=== PATIENT | male | born 1980 | race African-American/Black ===

== ENCOUNTER 2016-08-28 16:07 | Emergency (ER) | payer OTHER, MEDICAID ==
[2016-08-28 16:18] VITALS: RESP 16; TEMP 98.6; O2SAT 98
--- NOTE | 2016-08-28 16:21 | EDPHY ---
H & P Stated Complaint: blurry vision, insomnia, chest pounding, photosensitive, diff concentrating Time Seen by Provider: 08/28/16 16:20 HPI/ROS: CHIEF COMPLAINT: Multiple complaints. HISTORY OF PRESENT ILLNESS: This patient is a 36 year old male with a history of epilepsy who presents to the Emergency Department complaining that he has felt "out of it" over the past 3-4 days with multiple complaints including insomnia, heart palpitations with lightheadedness, nausea with loss of appetite , photophobia, and intermittent chills. He does complain of a mild headache that he attributes to muscle tension. No vomiting or diarrhea. His last seizure was over one week ago; he tells me that he regularly experiences seizures approximately 1x per month. He treats his epilepsy with cannabinoids and has not changed his dosage. He smokes marijuana but has not over the past 4-5 days. No alcohol or additional drug use. No personal or family history of depression, anxiety, schizophrenia, or bipolar disorder. REVIEW OF SYSTEMS: Aside from elements discussed in the HPI, a comprehensive 10-point review of systems was reviewed and is negative. PAST MEDICAL HISTORY: Epilepsy. Prior medical records reviewed by myself, including most recent visit on 2015. SOCIAL HISTORY: No alcohol or illicit drug use. Regular marijuana use (medical and recreational). Smokes tobacco regularly. PHYSICAL EXAM: VITAL SIGNS: Reviewed by me GENERAL: Well-developed, well-nourished, resting comfortably in no respiratory distress. HEENT: Atraumatic. Eyes: No icterus, no injection. Mouth: moist mucous membranes. No erythema or lesions. Neck: supple with no adenopathy. LUNGS: Clear to auscultation bilaterally, no wheezes, rhonchi or rales. CARDIAC: Regular rate and rhythm, no rubs, murmurs or gallops. ABDOMEN: Soft, nontender, nondistended, bowel sounds normal. BACK: No CVA tenderness. EXTREMITIES: No trauma. No edema. Range of motion is normal throughout. NEURO: Alert and oriented, grossly nonfocal. SKIN: Warm, diaphoretic, no rash. PSYCHIATRIC: Normal mentation, no agitation, pressured speech. Portions of this note were transcribed by a medical office clerk. I personally performed a history, physical exam, medical decision making, and confirmed accuracy of information the transcribed note. - Personal History Current Tetanus/Diphtheria Vaccine: Unsure Current Tetanus Diphtheria and Acellular Pertussis (TDAP): Unsure Tetanus Vaccine Date: < 10 years - Medical/Surgical History Hx Asthma: No Hx Chronic Respiratory Disease: No Hx Diabetes: No Hx Cardiac Disease: No Hx Renal Disease: No Hx Cirrhosis: No Hx Alcoholism: No Hx HIV/AIDS: No Hx Splenectomy or Spleen Trauma: No Other PMH: pmh: Epilepsy. psh: denies - Social History Smoking Status: Former smoker Constitutional: Initial Vital Signs Temperature (C) 37.0 C 08/28/16 16:15 Heart Rate 89 08/28/16 16:15 Respiratory Rate 16 08/28/16 16:15 Blood Pressure 141/86 H 08/28/16 16:15 O2 Sat (%) 98 08/28/16 16:15 O2 Delivery Mode Room Air Allergies/Adverse Reactions: Penicillins Allergy (Verified 05/21/16 18:41) Home Medications: Medication Instructions Recorded Cbd Oil 05/21/16 Atenolol [Tenormin 25 mg (*)] 25 mg PO DAILY #30 tab 08/28/16 Medical Decision Making - Diagnostics EKG Interpretation: The 12 lead EKG was interpreted by myself: Sinus rhythm, rate 74; ST elevation, probable normal early repol pattern. See hard copy and/or "tracemaster" electronic copy for interpretation. Imaging: Study: X-ray of the chest Indication: Palpitations Results: X-ray of the chest was obtained. The results of the study are: no acute pulmonary disease. The study was read by the radiologist, Dr. Justo Ware. I viewed the images myself on the PACS system. ED Course/Re-evaluation: IV established. 1L IV NS administered. Plan for labs, UA, and EKG. Labs reviewed: TSH is below normal range at 0.451; WBC is elevated at 11.78. Will proceed with Free T3 and T4 for further evaluation of possible hyperthyroidism. 1755: On reevaluation, the patient is feeling moderately improved. He is resting comfortably. I reviewed lab, UA, and EKG results with him. 182: Consultation with Dr. De La Garza, it specialist taking call for endocrinology, who will see the patient in the office. He recommends that the patient be sent home with atenolol. I discussed this plan with the patient who is agreeable to this. He will be discharged home in good condition. Differential Diagnosis: Differential diagnoses for the patient's symptom complex was considered including but not limited to anxiety, panic attack, withdrawal syndrome, drug or alcohol abuse, dehydration, electrolyte abnormalities, hyperthyroidism. - Data Points Laboratory Results: Laboratory Results 08/28/16 16:50 08/28/16 16:50 08/28/16 08/28/16 18:03 16:50 WBC 11.78 H 10^3/uL (3.80-9.50) RBC 5.83 10^6/uL (4.40-6.38) Hgb 16.0 g/dL (13.7-17.5) Hct 48.1 % (40.0-51.0) MCV 82.5 fL (81.5-99.8) MCH 27.4 L pg (27.9-34.1) MCHC 33.3 g/dL (32.4-36.7) RDW 14.0 % (11.5-15.2) Plt Count 291 10^3/uL (150-400) MPV 10.0 fL (8.7-11.7) Neut % (Auto) 73.3 % (39.3-74.2) Lymph % (Auto) 18.8 % (15.0-45.0) [place] % (Auto) 6.6 % (4.5-13.0) Eos % (Auto) 0.7 % (0.6-7.6) Baso % (Auto) 0.3 % (0.3-1.7) Nucleat RBC Rel Count 0.0 % (0.0-0.2) Absolute Neuts (auto) 8.63 H 10^3/uL (1.70-6.50) Absolute Lymphs (auto) 2.22 10^3/uL (1.00-3.00) Absolute Monos (auto) 0.78 10^3/uL (0.30-0.80) Absolute Eos (auto) 0.08 10^3/uL (0.03-0.40) Absolute Basos (auto) 0.04 10^3/uL (0.02-0.10) Absolute Nucleated RBC 0.00 10^3/uL (0-0.01) Immature Gran % 0.3 % (0.0-1.1) Immature Gran # 0.03 10^3/uL (0.00-0.10) D-Dimer < 0.27 ug/mLFEU (0.00-0.50) Sodium 145 H mEq/L (134-144) Potassium 4.1 mEq/L (3.5-5.2) Chloride 107 mEq/L (97-110) Carbon Dioxide 26 mEq/l (22-31) Anion Gap 12 mEq/L (8-16) BUN 10 mg/dL (7-23) Creatinine 0.9 mg/dL (0.7-1.3) Estimated GFR > 60 Glucose 80 mg/dL (70-100) Calcium 9.7 mg/dL (8.5-10.4) Total Bilirubin 0.9 mg/dL (0.1-1.4) Conjugated Bilirubin 0.2 mg/dL (0.0-0.5) Unconjugated Bilirubin 0.7 mg/dL (0.0-1.1) AST 22 IU/L (17-59) ALT 30 IU/L (21-72) Alkaline Phosphatase 79 IU/L (38-126) Creatine Kinase 164 IU/L (0-224) Troponin I < 0.012 ng/mL (0-0.034) Total Protein 7.9 g/dL (6.3-8.2) Albumin 4.5 g/dL (3.5-5.0) Lipase 163.0 IU/L (23-300) TSH 0.451 L uIU/mL (0.465-4.680) Free T4 1.45 ng/dL (0.59-2.19) Free T3 4.27 pg/mL (2.77-5.27) Urine Color YELLOW Urine Appearance CLEAR Urine pH 7.0 (5.0-7.5) Ur Specific [place] 1.006 (1.002-1.030) Urine Protein NEGATIVE (NEGATIVE) Urine Ketones NEGATIVE (NEGATIVE) Urine Blood NEGATIVE (NEGATIVE) Urine Nitrate NEGATIVE (NEGATIVE) Urine Bilirubin NEGATIVE (NEGATIVE) Urine Urobilinogen NEGATIVE EU (0.2-1.0) Ur Leukocyte Esterase NEGATIVE (NEGATIVE) Urine RBC 1-3 /hpf (0-3) Urine WBC NONE SEEN /hpf (0-3) Ur Epithelial Cells NONE SEEN /lpf (NONE-1+) Urine Sperm PRESENT /hpf (NONE SEEN) Urine Glucose NEGATIVE (NEGATIVE) Urine Opiates Screen NEGATIVE (NEGATIVE) Urine Barbiturates NEGATIVE (NEGATIVE) Ur Phencyclidine Scrn NEGATIVE (NEGATIVE) Ur Amphetamine Screen NEGATIVE (NEGATIVE) U Benzodiazepines Scrn NEGATIVE (NEGATIVE) Urine Cocaine Screen NEGATIVE (NEGATIVE) U Marijuana (THC) Screen NON-NEGATIVE H (NEGATIVE) Medications Given: Discontinued Medications Sodium Chloride (Ns) 1,000 mls @ 0 mls/hr IV ONCE ONE PRN Reason: Wide Open Stop: 08/28/16 16:34 Last Admin: 08/28/16 16:59 Dose: 1,000 mls Departure - Departure Disposition: Home, Routine, Self-Care Clinical Impression: Low thyroid stimulating hormone (TSH) level, Heart palpitations, Anxiety Condition: Good Instructions: Hyperthyroidism (ED), Palpitations (ED), Anxiety (ED) Additional Instructions: 1. Call Dr. De La Garza tomorrow to schedule a follow-up appointment this week. Any Internal Medicine Physician at [facility] will be happy to see you for further evaluation following today's visit. When scheduling the appointment , make sure to tell them that this is in follow-up to a visit to the Emergency Department. 2. Two lab tests are still pending. Call the ED in 1.5-2 hours for results or you may discuss these results when you follow up at [facility]. 3. Use atenolol as needed 1x daily for agitation, sweating, palpitations, and anxiety. 4. Return to the Emergency Department with severe headache, if you faint or feel like you may faint, chest pain or shortness of breath, or other serious concerns. Referrals: Davis De La Garza MD [Medical Doctor] - As per Instructions Prescriptions: Atenolol [Tenormin 25 mg (*)] 25 mg PO DAILY #30 tab Report Scribed for: Stephanie Lewis Report Scribed by: Carlie Cavanaugh Date of Report: 08/28/16 Time of Report: 16:21
[2016-08-28] MEDS ORDERED: NS 1,000 ML IV ONE (16:33)
[2016-08-28 17:00] LABS: % IMMATURE GRANULYOCYTES 0.3 % (0.0-1.1); ABSOLUTE IMMATURE GRANULOCYTES 0.03 10^3/uL (0.00-0.10); ADD DIFF? NO; ADD MORPH? NO; ADD SCAN? NO; ATYPICAL LYMPHOCYTE FLAG 0 (0-99); FRAGMENT RBC FLAG 0 (0-99); HEMATOCRIT 48.1 % (40.0-51.0); LEFT SHIFT FLG 0 (0-99); LIPEMIA HEMOLYSIS FLAG 80 (0-99); MEAN CELL HEMOGLOBIN 27.4 pg (27.9-34.1); MEAN CELL HEMOGLOBIN CONCENTR. 33.3 g/dL (32.4-36.7); MEAN CELL VOLUME 82.5 fL (81.5-99.8); PLATELET CLUMPS FLAG 0 (0-99); PLATELET COUNT 291 10^3/uL (150-400); RED BLOOD CELL COUNT 5.83 10^6/uL (4.40-6.38)
[2016-08-28 17:02] LABS: COLOR YELLOW; LEUKOCYTE ESTERASE,URINE NEGATIVE (NEGATIVE); NITRITE,URINE NEGATIVE (NEGATIVE)
--- NOTE | 2016-08-28 17:09 | CPEKG ---
Heart Rate: 74 RR Interval: 811 P-R Interval: 132 QRSD Interval: 98 QT Interval: 388 QTC Interval: 431 P Emerson: 19 QRS Emerson: 54 T Wave Emerson: 40 EKG Severity - NORMAL ECG - EKG Impression: SINUS RHYTHM EKG Impression: ST ELEV, PROBABLE NORMAL EARLY REPOL PATTERN Electronically Signed By: Stephanie Lewis 28-Aug-2016 23:35:50
[2016-08-28 17:11] LABS: WBC,URINE NONE SEEN /hpf (0-3)
[2016-08-28 17:13] LABS: ALANINE AMINOTRANSFERASE 30 IU/L (21-72); ALBUMIN 4.5 g/dL (3.5-5.0); ALKALINE PHOSPHATASE 79 IU/L (38-126); ANION GAP 12 mEq/L (8-16); ASPARTATE AMINOTRANSFERASE 22 IU/L (17-59); BILIRUBIN,TOTAL 0.9 mg/dL (0.1-1.4); BILIRUBIN-CONJUGATED 0.2 mg/dL (0.0-0.5); BILIRUBIN-UNCONJUGATED 0.7 mg/dL (0.0-1.1); CALCIUM 9.7 mg/dL (8.5-10.4); CARBON DIOXIDE 26 mEq/l (22-31); CHLORIDE 107 mEq/L (97-110); CREATININE 0.9 mg/dL (0.7-1.3); GLOMERULAR FILTRATION RATE > 60; GLUCOSE 80 mg/dL (70-100); POTASSIUM 4.1 mEq/L (3.5-5.2); SODIUM 145 mEq/L (134-144); TOTAL PROTEIN 7.9 g/dL (6.3-8.2)
[2016-08-28 17:25] LABS: TROPONIN I < 0.012 ng/mL (0-0.034)
[2016-08-28] MEDS ORDERED: ATENOLOL 25 MG TAB PO ONE (18:01)
--- NOTE | 2016-08-28 18:04 | DX ---
Chest, Two Views at 1720 hours History: Palpitations. Chest pain. Epilepsy Comparison: None. Findings: Cardiac silhouette is within normal range. No pneumonia, congestive heart failure, pleural effusion, or pneumothorax. Impression: No acute pulmonary disease.
[2016-08-28 18:40] VITALS: BP 121/45; PULSE 95
== END 2016-08-28 18:40 | disposition home or self-care (01) ==
DX: R94.6 Abnormal results of thyroid function studies (principal); F41.9 Anxiety disorder, unspecified; Z87.891 Personal history of nicotine dependence
CPT/HCPCS: 80305; 84481-90

== ENCOUNTER 2016-08-31 00:32 | Emergency (ER) | payer OTHER, MEDICAID ==
[2016-08-31 00:39] VITALS: BP 136/91; PULSE 90; RESP 16; TEMP 98.1; O2SAT 99
[2016-08-31] MEDS ORDERED: NS 1,000 ML IV ONE (01:18)
--- NOTE | 2016-08-31 01:23 | EDPHY ---
H & P Stated Complaint: NOT FEELING WELL, THINKS HE HAD A SEIZURE HPI/ROS: HPI CHIEF COMPLAINT: Multiple complaints HISTORY OF PRESENT ILLNESS: This patient 36-year-old male significant past medical history for epilepsy and takes marijuana to help control his seizures, presents emergency room by private vehicle think he may have had a seizure earlier. Tells me that he has generalized abdominal pain, generalized chest pain, headache. He tells me that after he has a large seizure he gets like this. He feels nauseous. He denies numbness or tingling, denies focal weakness , denies left-sided chest pain. He states his body hurts all over. Denies recent fever. He does tell me he was recently here in the emergency room and diagnosed with thyroid disease. Tells me does not take any medication. Past Medical History: Epilepsy, controls seizures with marijuana Past Surgical History: denies significant surgical history Social History: daily marijuana use, denies illicit drugs or tobacco products Family History: noncontributory ROS REVIEW OF SYSTEMS: A comprehensive 10 point review of systems is otherwise negative aside from elements mentioned in the history of present illness. Exam Constitutional appears well nontoxic, triage nursing summary reviewed, vital signs reviewed, awake/alert. Eyes normal conjunctivae and sclera, EOMI, PERRLA. HENT normal inspection, atraumatic, moist mucus membranes, no epistaxis, neck supple/ no meningismus, no raccoon eyes. Respiratory clear to auscultation bilaterally, normal breath sounds, no respiratory distress, no wheezing. Cardiovascular rate normal, regular rhythm, no murmur, no edema, distal pulses normal. Gastrointestinal soft, non-tender, no rebound, no guarding, normal bowel sounds, no distension, no pulsatile mass. Genitourinary no CVA tenderness. Musculoskeletal no midline vertebral tenderness, full range of motion, no calf swelling, no tenderness of extremities, no meningismus, good pulses, neurovascularly intact. Skin pink, warm, & dry, no rash, skin atraumatic. Neurologic awake, alert and oriented x 3, AAOx3, moves all 4 extremities equally, motor intact, sensory intact, CN II-XII intact, normal cerebellar, normal vision, normal speech. Psychiatric normal mood/affect. Heme/Lymph/Immune no lymphadenopathy. Differential Diagnosis: includes but is not limited to in a particular order, seizure, breakthrough seizure, epilepsy, dehydration, electrolyte abnormality, infection, pneumonia, rhabdo Medical Decision Making: The patient had an IV established placed on a monitor , will check an EKG, chest x-ray, blood work including electrolytes and CK, MB gently hydrated. Will monitor him for further seizure activity. Re-evaluation: 0125: patient now tells me he does not want any blood work or x-ray. He wishes to leave the emergency room. I explained with his complaints of pain all over that I was trying to evaluate this with blood work imaging an EKG however patient is decline. I explained without further investigation of why he is here why he is feeling ill he could have a bad outcome this includes morbidity or severe mortality he understands this and is leaving the emergency room. 0147: I went back to discuss options with this patient about blood work and evaluation of his medical complaints however he started screaming at me states "Fuck off" to the patient's verbal aggression and screaming at me even though I was trying to help him and further evaluate his medical complaints however he became very verbally aggressive with me. I tried to have a normal conversation with him explain why we do certain testing however he is refusing. I explained given is refusing all testing and now getting verbally aggressive with me, that I dont know how to help him. I explained to him that we need to obtain blood work, EKG and chest x-ray to evaluate his abdominal pain chest pain and make sure he does not have an electrolyte abnormality to make sure he does not have recurrent seizure. He is refusing all this. I did recommend that he follows up with his primary care doctor gets his atenolol prescription that he was previously prescribed filled. 0201: Patient became irate he refused to sign leaving against medical advice paperwork and walked out of the emergency room screaming at medical staff. Source: Patient - Personal History Current Tetanus Diphtheria and Acellular Pertussis (TDAP): Yes Tetanus Vaccine Date: < 10 years - Medical/Surgical History Hx Asthma: No Hx Chronic Respiratory Disease: No Hx Diabetes: No Hx Cardiac Disease: No Hx Renal Disease: No Hx Cirrhosis: No Hx Alcoholism: No Hx HIV/AIDS: No Hx Splenectomy or Spleen Trauma: No Other PMH: pmh: Epilepsy. psh: denies - Social History Smoking Status: Former smoker Constitutional: Initial Vital Signs Temperature (C) 36.7 C 08/31/16 00:36 Heart Rate 90 08/31/16 00:36 Respiratory Rate 16 08/31/16 00:36 Blood Pressure 136/91 H 08/31/16 00:36 O2 Sat (%) 99 08/31/16 00:36 O2 Delivery Mode Room Air Allergies/Adverse Reactions: Penicillins Allergy (Verified 05/21/16 18:41) Home Medications: Medication Instructions Recorded Cbd Oil 05/21/16 Atenolol [Tenormin 25 mg (*)] 25 mg PO DAILY #30 tab 08/28/16 Departure - Departure Disposition: Home, Routine, Self-Care Clinical Impression: Pain Condition: Fair Instructions: Hyperthyroidism (ED) Referrals: Nasir Resendez MD [Primary Care Provider] - As per Instructions
== END 2016-08-31 02:06 | disposition home or self-care (01) ==
DX: R10.84 Generalized abdominal pain (principal); R07.9 Chest pain, unspecified; R51 Headache

== ENCOUNTER 2016-09-02 04:22 | Emergency (ER) | payer OTHER, MEDICAID ==
[2016-09-02] MEDS ORDERED: NITROGLYCERIN 0.4 MG BTL SL PRN (04:27)
[2016-09-02] MEDS ORDERED: NS 1,000 ML IV ONE (04:27)
[2016-09-02] MEDS ORDERED: ASPIRIN 81 MG CHEWABLE TAB PO ONE (04:27)
[2016-09-02] MEDS ORDERED: LORazepam 2 MG/ML INJ IVP ONE (04:28)
--- NOTE | 2016-09-02 04:32 | EDPHY ---
H & P HPI/ROS: HPI CHIEF COMPLAINT: Chest Pain HISTORY OF PRESENT ILLNESS: This patient is a 36-year-old male who I have seen previously, last left against medical advice he was in the emergency room, he presents to the emergency room this evening after seen at [facility] for chest discomfort. He tells me that his chest across the entire chest feels tight and he goes into his abdomen. Tells me he is very anxious and gets worse when his anxiety gets high. He does feel very anxious. He states that he was worked up with EKGs and blood work at [facility] and diagnosed with anxiety and given a prescription for Valium. After arriving back home after being discharged from a [facility] he presents to our emergency room by EMS with ongoing chest tightness, and anxiety. He states has been going on since or before midnight denies any other associated symptoms. He denies focal weakness, numbness or tingling, chest pressure dull ache. Describes a tightness sensation across his chest into his abdomen with anxiety. Enroute by EMS he did receive full-dose aspirin 325 mg as well as 10 mg IV Valium which did improve his anxiety but he still has chest discomfort. He tells me this sensation has been going on for over 5 hours. Past Medical History: "epilepsy" take CBD oil Past Surgical History: Denies any significant surgical history Social History: denies drugs, does smoke tobacco. Family History: noncontributory ROS REVIEW OF SYSTEMS: A comprehensive 10 point review of systems is otherwise negative aside from elements mentioned in the history of present illness. Exam Constitutional triage nursing summary reviewed, vital signs reviewed, awake/ alert. Eyes normal conjunctivae and sclera, EOMI, PERRLA. HENT normal inspection, atraumatic, moist mucus membranes, no epistaxis, neck supple/ no meningismus, no raccoon eyes. Respiratory clear to auscultation bilaterally, normal breath sounds, no respiratory distress, no wheezing. Cardiovascular rate normal, regular rhythm, no murmur, no edema, distal pulses normal. Gastrointestinal soft, non-tender, no rebound, no guarding, normal bowel sounds, no distension, no pulsatile mass. Genitourinary no CVA tenderness. Musculoskeletal no midline vertebral tenderness, full range of motion, no calf swelling, no tenderness of extremities, no meningismus, good pulses, neurovascularly intact. Skin pink, warm, & dry, no rash, skin atraumatic. Neurologic awake, alert and oriented x 3, AAOx3, moves all 4 extremities equally, motor intact, sensory intact, CN II-XII intact, normal cerebellar, normal vision, normal speech. Psychiatric normal mood/affect. Heme/Lymph/Immune no lymphadenopathy. Differential diagnosis includes but is not limited to: Anxiety, atypical chest pain, doubt ACS, pneumothorax, pneumonia, pulmonary embolism, aortic dissection , congestive heart failure, tumor, musculoskeletal pain, esophageal pain, GERD, peptic ulcer disease, pancreatitis Medical Decision Making:This patient had an IV established be placed on full air sampling and monitoring will obtain EKG, cardiac markers, troponin, EKG to rule out acute coronary syndrome and chest x-ray. He will be medicated with IV Ativan for anxiety. He also received full dose aspirin prior to arrival. He will be given a nitroglycerin tab to see if this improves his chest pain. Re-evaluation: EKG interpretation by me on record in [employer] system. Impression time of EKG is 4:36 a.m., this is sinus rate rate of 72. There is no acute ischemic change appreciated. Early pulled pattern. LVH present. 0539: re-examination at this time this patient was given IV Ativan 1 mg he is resting comfortably. He has no chest pain at this time. His noted that his EKG was nonischemic. He has been on the air sampling and monitoring without any signs of arrhythmia. Repeat EKG: Time repeat EKG is 6:09 a.m. this is sinus rhythm, rate of 65, there is early repolarization pattern. no acute ischemic change. When I compare the 2 current EKGs today to his previous EKGs they look very similar morphology there is LVH present an early Ann-Marie pulp pattern. There is no evidence of acute ischemia or significant ST elevation. Specifically he has had EKGs that read pericarditis and ST elevation with early REpol pattern in the past similar to the EKG done today. ED x-ray chest one view: this is negative for acute cardiopulmonary disease. 0649: Re-examination at this time this patient is resting comfortably he is chest pain-free. He feels much better after IV Ativan. He is agreeable for discharge. He has had a repeat EKG that is similar morphology to his previous EKG and when compared to his previous EKGs are unchanged. Blood work has been reviewed he had a negative troponin. This 1st troponin was approximately 5 hours after symptom onset. I did repeat another troponin which is 7 hours after time of onset. He has not had continuous chest pain is very atypical presentation consistent with anxiety. Repeat troponin is negative. Patient is resting comfortably. Agrees for discharge. Source: Patient, EMS - Personal History Tetanus Vaccine Date: < 10 years - Medical/Surgical History Hx Asthma: No Hx Chronic Respiratory Disease: No Hx Diabetes: No Hx Cardiac Disease: No Hx Renal Disease: No Hx Cirrhosis: No Hx Alcoholism: No Hx HIV/AIDS: No Hx Splenectomy or Spleen Trauma: No Other PMH: pmh: Epilepsy. psh: denies - Social History Smoking Status: Former smoker Constitutional: Initial Vital Signs Temperature (C) 36.6 C 09/02/16 04:23 Heart Rate 83 09/02/16 04:23 Respiratory Rate 16 09/02/16 04:23 Blood Pressure 135/78 H 09/02/16 04:23 O2 Sat (%) 96 09/02/16 04:23 O2 Delivery Mode Nasal Cannula O2 (L/minute) 2 Allergies/Adverse Reactions: Penicillins Allergy (Verified 09/02/16 04:46) Home Medications: Medication Instructions Recorded Cbd Oil 05/21/16 Atenolol [Tenormin 25 mg (*)] 25 mg PO DAILY #30 tab 08/28/16 Medical Decision Making - Data Points Laboratory Results: Laboratory Results 09/02/16 04:30 09/02/16 04:30 09/02/16 09/02/16 06:11 04:30 WBC 11.75 H 10^3/uL (3.80-9.50) RBC 5.15 10^6/uL (4.40-6.38) Hgb 14.5 g/dL (13.7-17.5) Hct 41.6 % (40.0-51.0) MCV 80.8 L fL (81.5-99.8) MCH 28.2 pg (27.9-34.1) MCHC 34.9 g/dL (32.4-36.7) RDW 13.5 % (11.5-15.2) Plt Count 276 10^3/uL (150-400) MPV 9.7 fL (8.7-11.7) Neut % (Auto) 65.1 % (39.3-74.2) Lymph % (Auto) 26.6 % (15.0-45.0) [place] % (Auto) 6.6 % (4.5-13.0) Eos % (Auto) 1.0 % (0.6-7.6) Baso % (Auto) 0.4 % (0.3-1.7) Nucleat RBC Rel Count 0.0 % (0.0-0.2) Absolute Neuts (auto) 7.64 H 10^3/uL (1.70-6.50) Absolute Lymphs (auto) 3.13 H 10^3/uL (1.00-3.00) Absolute Monos (auto) 0.77 10^3/uL (0.30-0.80) Absolute Eos (auto) 0.12 10^3/uL (0.03-0.40) Absolute Basos (auto) 0.05 10^3/uL (0.02-0.10) Absolute Nucleated RBC 0.00 10^3/uL (0-0.01) Immature Gran % 0.3 % (0.0-1.1) Immature Gran # 0.04 10^3/uL (0.00-0.10) PT 14.1 SEC (12.0-15.0) INR 1.10 (0.83-1.16) APTT 26.1 SEC (23.0-38.0) D-Dimer < 0.27 ug/mLFEU (0.00-0.50) Sodium 144 mEq/L (134-144) Potassium 3.9 mEq/L (3.5-5.2) Chloride 111 H mEq/L (97-110) Carbon Dioxide 20 L mEq/l (22-31) Anion Gap 13 mEq/L (8-16) BUN 10 mg/dL (7-23) Creatinine 0.8 mg/dL (0.7-1.3) Estimated GFR > 60 Glucose 108 H mg/dL (70-100) Calcium 9.6 mg/dL (8.5-10.4) Magnesium 1.9 mg/dL (1.6-2.3) Total Bilirubin 0.6 mg/dL (0.1-1.4) Conjugated Bilirubin 0.3 mg/dL (0.0-0.5) Unconjugated Bilirubin 0.3 mg/dL (0.0-1.1) AST 36 IU/L (17-59) ALT 32 IU/L (21-72) Alkaline Phosphatase 75 IU/L (38-126) Creatine Kinase 627 H IU/L (0-224) CK-MB (CK-2) Fraction 5.68 H ng/mL (0-3.19) CK-MB (CK-2) % 0.9 % (0.0-4.0) Creatine Kinase Interp NEGATIVE (NEGATIVE) Troponin I 0.014 ng/mL < 0.012 ng/mL (0-0.034) (0-0.034) NT-Pro-B Natriuret Pep 38 pg/mL (0-125) Total Protein 7.2 g/dL (6.3-8.2) Albumin 4.0 g/dL (3.5-5.0) Lipase 160.0 IU/L (23-300) TSH 0.677 uIU/mL (0.465-4.680) Ethyl Alcohol < 10 mg/dL (0-10) Medications Given: Discontinued Medications Aspirin (Aspirin) 324 mg PO EDNOW ONE Stop: 09/02/16 04:28 Last Admin: 09/02/16 05:01 Dose: Not Given Sodium Chloride (Ns) 1,000 mls @ 0 mls/hr IV ONCE ONE PRN Reason: As Directed Stop: 09/02/16 04:28 Last Admin: 09/02/16 04:57 Dose: 1,000 mls Lorazepam (Ativan Injection) 1 mg IVP EDNOW ONE Stop: 09/02/16 04:29 Last Admin: 09/02/16 04:56 Dose: 1 mg Nitroglycerin (Nitrostat) 0.4 mg SL Q5M PRN PRN Reason: Chest Pain Stop: 09/02/16 04:38 Last Admin: 09/02/16 04:59 Dose: 0.4 mg Departure - Departure Disposition: Home, Routine, Self-Care Clinical Impression: Anxiety attack, Atypical chest pain, Anxiety Condition: Good Instructions: Anxiety (ED), Thoracic Pain (ED) Additional Instructions: 1. Return to the emergency room if there is any worsening symptoms questions or concerns. 2. Please take her Valium they are prescribed by the other hospital if you have anxiety. Referrals: Patient,NotPresent [Unknown] - As per Instructions
[2016-09-02 04:48] LABS: % IMMATURE GRANULYOCYTES 0.3 % (0.0-1.1); ABSOLUTE IMMATURE GRANULOCYTES 0.04 10^3/uL (0.00-0.10); ADD DIFF? NO; ADD MORPH? NO; ADD SCAN? NO; ATYPICAL LYMPHOCYTE FLAG 0 (0-99); FRAGMENT RBC FLAG 0 (0-99); HEMATOCRIT 41.6 % (40.0-51.0); HEMOGLOBIN 14.5 g/dL (13.7-17.5); LEFT SHIFT FLG 0 (0-99); LIPEMIA HEMOLYSIS FLAG 90 (0-99); MEAN CELL HEMOGLOBIN 28.2 pg (27.9-34.1); MEAN CELL HEMOGLOBIN CONCENTR. 34.9 g/dL (32.4-36.7); MEAN CELL VOLUME 80.8 fL (81.5-99.8); MEAN PLATELET VOLUME 9.7 fL (8.7-11.7); PLATELET CLUMPS FLAG 0 (0-99); PLATELET COUNT 276 10^3/uL (150-400); RED BLOOD CELL COUNT 5.15 10^6/uL (4.40-6.38); RED CELL DISTRIBUTION WIDTH 13.5 % (11.5-15.2)
[2016-09-02] MEDS ORDERED: NITROGLYCERIN 0.4 MG BTL SL ONE (04:48)
--- NOTE | 2016-09-02 04:50 | CPEKG ---
Heart Rate: 72 RR Interval: 833 P-R Interval: 132 QRSD Interval: 98 QT Interval: 392 QTC Interval: 430 P [place]: 46 QRS [place]: 57 T Wave [place]: 37 EKG Severity - ABNORMAL ECG - EKG Impression: SINUS RHYTHM EKG Impression: ST ELEV, PERICARDITIS VS EARLY REPOL PATTERN Electronically Signed By: Mick Gibson 03-Sep-2016 10:55:58
[2016-09-02 04:55] LABS: PROTIME(PATIENT) 14.1 SEC (12.0-15.0)
[2016-09-02 04:56] LABS: APTT 26.1 SEC (23.0-38.0)
[2016-09-02 05:13] LABS: ALANINE AMINOTRANSFERASE 32 IU/L (21-72); ALKALINE PHOSPHATASE 75 IU/L (38-126); ANION GAP 13 mEq/L (8-16); ASPARTATE AMINOTRANSFERASE 36 IU/L (17-59); BILIRUBIN,TOTAL 0.6 mg/dL (0.1-1.4); BILIRUBIN-CONJUGATED 0.3 mg/dL (0.0-0.5); BILIRUBIN-UNCONJUGATED 0.3 mg/dL (0.0-1.1); CALCIUM 9.6 mg/dL (8.5-10.4); CARBON DIOXIDE 20 mEq/l (22-31); CHLORIDE 111 mEq/L (97-110); CREATININE 0.8 mg/dL (0.7-1.3); ETHANOL SERUM < 10 mg/dL (0-10); GLOMERULAR FILTRATION RATE > 60; GLUCOSE 108 mg/dL (70-100); MAGNESIUM 1.9 mg/dL (1.6-2.3); POTASSIUM 3.9 mEq/L (3.5-5.2); SODIUM 144 mEq/L (134-144); TOTAL PROTEIN 7.2 g/dL (6.3-8.2)
[2016-09-02 05:24] LABS: TROPONIN I < 0.012 ng/mL (0-0.034)
[2016-09-02 05:37] LABS: CK-MB INTERPRETATION NEGATIVE (NEGATIVE)
[2016-09-02 05:43] LABS: CREATINE KINASE-MB FRACTION 5.68 ng/mL (0-3.19)
[2016-09-02 07:02] VITALS: PULSE 75
[2016-09-02 07:20] VITALS: BP 122/85; RESP 18; TEMP 97.7; O2SAT 96
--- NOTE | 2016-09-02 09:35 | DX ---
Portable AP Upright Chest September 02, 2016 at 4:39 a.m. Clinical History: 36-year-old male with a history of epilepsy who presents with chest pain, cough, an d a sore throat. Comparison Study: Chest, dated August 28, 2016 at 5:20 p.m. Findings: The patient is slightly rotated to the left. Telemetry monitoring lead lines are present. T he cardiac silhouette is within normal limits, given the portable AP technique. There is no focal raven eolar consolidation, pleural effusion, peripheral interstitial edema, or pneumothorax. The osseous st ructures are age-appropriate. Impression: No acute localizing features.
--- NOTE | 2016-09-03 08:27 | CPEKG ---
Heart Rate: 65 RR Interval: 923 P-R Interval: 132 QRSD Interval: 94 QT Interval: 428 QTC Interval: 445 P [place]: 48 QRS [place]: 51 T Wave [place]: 32 EKG Severity - ABNORMAL ECG - EKG Impression: SINUS RHYTHM EKG Impression: ST ELEVATION SUGGESTS PERICARDITIS VS EARLY REPOLARIZATION Electronically Signed By: Mick Gibson 03-Sep-2016 10:55:40
== END 2016-09-02 07:18 | disposition home or self-care (01) ==
LOC: EDUNIT#
DX: F41.9 Anxiety disorder, unspecified (principal); Z87.891 Personal history of nicotine dependence
CPT/HCPCS: 96374; G0480

== ENCOUNTER 2016-10-02 17:14 | Emergency (ER) | payer OTHER, MEDICAID ==
--- NOTE | 2016-10-02 17:16 | EDPHY ---
H & P Time Seen by Provider: 10/02/16 17:16 - Personal History Tetanus Vaccine Date: < 10 years - Medical/Surgical History Hx Asthma: No Hx Chronic Respiratory Disease: No Hx Diabetes: No Hx Cardiac Disease: No Hx Renal Disease: No Hx Cirrhosis: No Hx Alcoholism: No Hx HIV/AIDS: No Hx Splenectomy or Spleen Trauma: No Other PMH: pmh: Epilepsy. psh: denies - Social History Smoking Status: Former smoker Constitutional: Initial Vital Signs Temperature (C) 36.6 C 10/02/16 17:25 Heart Rate 70 10/02/16 17:25 Respiratory Rate 16 10/02/16 17:25 Blood Pressure 131/76 H 10/02/16 17:25 O2 Sat (%) 94 10/02/16 17:25 O2 Delivery Mode Room Air Allergies/Adverse Reactions: Penicillins Allergy (Verified 09/02/16 04:46) Home Medications: Medication Instructions Recorded Cbd Oil 05/21/16 Atenolol [Tenormin 25 mg (*)] 25 mg PO DAILY #30 tab 08/28/16 Medical Decision Making ED Course/Re-evaluation: CHIEF COMPLAINT: Altered mental status HISTORY OF PRESENT ILLNESS: This patient is a 36 year old male with a history of seizure disorder who presents arriving by EMS under Limited Trauma Activation after he was found in an altered state with bruising to the forehead lying in bed in his apartment at approximately 1645 tonight. Per EMS, he apparently pulled a cord in his bathtub alerting apartment staff to an emergency ; when EMS arrived, he was found in bed. No water was in the bathtub when they arrived. He has a history of seizure disorder. Further history and ROS is unobtainable secondary to the patient's condition. PHYSICAL EXAM: HR 70, BP 131/76, O2 Sat 94%, RR 16. Temp noted General Appearance: Responsive to stimuli only. Head: Small frontal abrasions. Eyes: Pupils small, reactive to light and accommodation, no trauma, no injection. Ears: Clear bilaterally, no perforation, normal landmarks Nose: Atraumatic, no rhinorrhea, clear. Mouth: Left lateral tongue biting. Throat: There is no erythema or exudates, no lesions, normal tonsils, mucus membranes moist. Neck: C-collar in place, nontender, no lymphadenopathy. Respiratory: No retractions, no distress, no wheezes, and no accessory muscle use. Lungs are clear to auscultation bilaterally. Cardiovascular: Regular rate and rhythm, no murmurs, rubs, or gallops. Bilateral carotid, radial, dorsalis pedis, and posterior tibial pulses intact. Good capillary refill all extremities. Gastrointestinal: Abdomen is soft, non-distended, no masses, no rebound, no guarding, no peritoneal signs. Musculoskeletal: Normal active ROM of all extremities, atraumatic. Neurological: Responsive to tactile stimuli only. Skin: No rashes, good turgor, no nodules on palpation. Past medical history: Hypothyroid, seizure disorder. Past surgical history: Unknown. Family history: Non-contributory. Social history: Lives independently. DIAGNOSTICS/PROCEDURES/CRITICAL CARE TIME: EKG INTERPRETATION: The 12 lead EKG was interpreted by myself: Sinus rhythm, rate 83. No ischemic changes. See hard copy and/or "tracemaster" electronic copy for interpretation. IMAGING: Study: CT of the head and neck Indication: AMS Results: CT scan of the head and cervical spine was obtained. The results of the study are: non-acute. The study was read by the radiologist, Dr. Jhon Hendricks. I viewed the images myself on the PACS system. DIFFERENTIAL DIAGNOSIS: The differential diagnosis for the patient's altered mental status included but was not limited to post-ictal state, hypoglycemia, infectious process, electrolyte abnormality, head injury, neurologic process, anemia, cardiac process, and intoxicants. MEDICAL DECISION MAKIN: Took EMS report at bedside. 15mg IM Versed administered in transport for combative behavior. This 36 year old male with history of epilepsy presents with altered mental status. Per EMS, he alerted hospital staff using a cord in his bathroom that he was in an emergency state. When they arrived, he was found with evidence of head trauma to the front of his scalp. They report that he was combative in transport and given 15mg IM versed. Upon arrival, he is responsive to painful stimuli only. He has mild abrasions to is forehead but no other evidence of significant head trauma. He has lateral tongue abrasions suggestive of a seizure. Will proceed with labs, EKG, and CT of the head. 1820: Imaging results reported to me by Dr. Jhon Hendricks, radiologist. Official downgrade from [facility] at 1821. 1838: On reevaluation, the patient remains altered but is responsive. I have cleared his cervical spine and removed his c-coller. Labs obtained. WBC elevated at 20.18. ETOH is negative. 1927: On reevaluation, the patient's mental status has improved. He is behaving appropriately. Will plan for discharge home. I discussed with him that he should continue to take his seizure medications as prescribed. He articulates agreement to this. - Data Points Laboratory Results: Laboratory Results 10/02/16 18:17 10/02/16 18:17 10/02/16 10/02/16 18:17 18:17 WBC 20.18 10^3/uL H 10^3/uL (3.80-9.50) RBC 4.66 10^6/uL 10^6/uL (4.40-6.38) Hgb 13.1 g/dL L g/dL (13.7-17.5) Hct 38.7 % L % (40.0-51.0) MCV 83.0 fL fL (81.5-99.8) MCH 28.1 pg pg (27.9-34.1) MCHC 33.9 g/dL g/dL (32.4-36.7) RDW 14.2 % % (11.5-15.2) Plt Count 250 10^3/uL 10^3/uL (150-400) MPV 10.1 fL fL (8.7-11.7) Neut % (Auto) 89.7 % H % (39.3-74.2) Lymph % (Auto) 3.5 % L % (15.0-45.0) [place] % (Auto) 6.2 % % (4.5-13.0) Eos % (Auto) 0.0 % L % (0.6-7.6) Baso % (Auto) 0.1 % L % (0.3-1.7) Nucleat RBC Rel Count 0.0 % % (0.0-0.2) Absolute Neuts (auto) 18.09 10^3/uL H 10^3/uL (1.70-6.50) Absolute Lymphs (auto) 0.70 10^3/uL L 10^3/uL (1.00-3.00) Absolute Monos (auto) 1.26 10^3/uL H 10^3/uL (0.30-0.80) Absolute Eos (auto) 0.00 10^3/uL L 10^3/uL (0.03-0.40) Absolute Basos (auto) 0.03 10^3/uL 10^3/uL (0.02-0.10) Absolute Nucleated RBC 0.00 10^3/uL 10^3/uL (0-0.01) Immature Gran % 0.5 % % (0.0-1.1) Immature Gran # 0.10 10^3/uL 10^3/uL (0.00-0.10) Sodium 143 mEq/L mEq/L (134-144) Potassium 4.3 mEq/L mEq/L (3.5-5.2) Chloride 112 mEq/L H mEq/L (97-110) Carbon Dioxide 20 mEq/l L mEq/l (22-31) Anion Gap 11 mEq/L mEq/L (8-16) BUN 7 mg/dL mg/dL (7-23) Creatinine 0.9 mg/dL mg/dL (0.7-1.3) Estimated GFR > 60 Glucose 81 mg/dL mg/dL (70-100) Calcium 9.3 mg/dL mg/dL (8.5-10.4) Ethyl Alcohol < 10 mg/dL mg/dL (0-10) Medications Given: Discontinued Medications Sodium Chloride (Ns) 1,000 mls @ 0 mls/hr IV ONCE ONE PRN Reason: Wide Open Stop: 10/02/16 17:25 Last Admin: 10/02/16 17:55 Dose: 1,000 mls Sodium Chloride (Ns) 1,000 mls @ 0 mls/hr IV ONCE ONE PRN Reason: Wide [place] Stop: 10/02/16 17:25 Last Admin: 10/02/16 17:55 Dose: 1,000 mls Sodium Chloride (Ns) 1,000 mls @ 0 mls/hr IV ONCE ONE PRN Reason: Wide Open Stop: 10/02/16 18:11 Last Admin: 10/02/16 18:10 Dose: 1,000 mls Ketamine HCl (Ketamine) 40 mg IVP EDNOW ONE Stop: 10/02/16 17:56 Last Admin: 10/02/16 17:55 Dose: 40 mg Departure - Departure Disposition: Home, Routine, Self-Care Clinical Impression: Seizure Condition: Good Instructions: Recurrent Seizures in Adults (ED) Additional Instructions: 1. Continue to take your anti-seizure medications as prescribed. 2. Return to the Emergency Department if you experience confusion, worsening headache, uncontrollable seizures, or for other serious concerns. Referrals: Nasir Resendez MD [Primary Care Provider] - As per Instructions Report Scribed for: Pelon Davidson Report Scribed by: Carlie Cavanaugh Date of Report: 10/02/16 Time of Report: 17:27
[2016-10-02] MEDS ORDERED: NS 1,000 ML IV ONE ×3 (17:24→18:10)
[2016-10-02] MEDS ORDERED: KETAMINE 100 MG/10 ML SYR IVP ONE ×2 (17:44→17:55)
[2016-10-02 18:33] LABS: % IMMATURE GRANULYOCYTES 0.5 % (0.0-1.1); ADD DIFF? NO; ADD MORPH? NO; ADD SCAN? NO; ATYPICAL LYMPHOCYTE FLAG 0 (0-99); FRAGMENT RBC FLAG 0 (0-99); HEMATOCRIT 38.7 % (40.0-51.0); HEMOGLOBIN 13.1 g/dL (13.7-17.5); LEFT SHIFT FLG 10 (0-99); LIPEMIA HEMOLYSIS FLAG 90 (0-99); MEAN CELL HEMOGLOBIN 28.1 pg (27.9-34.1); MEAN CELL HEMOGLOBIN CONCENTR. 33.9 g/dL (32.4-36.7); MEAN PLATELET VOLUME 10.1 fL (8.7-11.7); PLATELET CLUMPS FLAG 10 (0-99); PLATELET COUNT 250 10^3/uL (150-400); RED BLOOD CELL COUNT 4.66 10^6/uL (4.40-6.38); RED CELL DISTRIBUTION WIDTH 14.2 % (11.5-15.2)
[2016-10-02 18:42] LABS: ANION GAP 11 mEq/L (8-16); CALCIUM 9.3 mg/dL (8.5-10.4); CARBON DIOXIDE 20 mEq/l (22-31); CHLORIDE 112 mEq/L (97-110); CREATININE 0.9 mg/dL (0.7-1.3); ETHANOL SERUM < 10 mg/dL (0-10); GLOMERULAR FILTRATION RATE > 60; GLUCOSE 81 mg/dL (70-100); POTASSIUM 4.3 mEq/L (3.5-5.2); SODIUM 143 mEq/L (134-144)
[2016-10-02 19:51] VITALS: BP 130/76; PULSE 88; RESP 18; TEMP 98.2; O2SAT 96
== END 2016-10-02 19:49 | disposition home or self-care (01) ==
LOC: EDUNIT#
DX: G40.909 Epilepsy, unspecified, not intractable, without status epilepticus (principal); Z87.891 Personal history of nicotine dependence
CPT/HCPCS: 96374; G0480

== ENCOUNTER 2016-10-06 12:17 | Emergency (ER) | payer OTHER, MEDICAID ==
[2016-10-06 12:21] VITALS: TEMP 98.4; O2SAT 95
--- NOTE | 2016-10-06 12:33 | EDPHY ---
H & P Stated Complaint: L FLANK ABD PAIN X2 HRS Time Seen by Provider: 10/06/16 12:33 - Personal History Current Tetanus/Diphtheria Vaccine: Unsure Current Tetanus Diphtheria and Acellular Pertussis (TDAP): Unsure Tetanus Vaccine Date: < 10 years - Medical/Surgical History Hx Asthma: No Hx Chronic Respiratory Disease: No Hx Diabetes: No Hx Cardiac Disease: No Hx Renal Disease: No Hx Cirrhosis: No Hx Alcoholism: No Hx HIV/AIDS: No Hx Splenectomy or Spleen Trauma: No Other PMH: pmh: Epilepsy. psh: denies - Social History Smoking Status: Former smoker Constitutional: Initial Vital Signs Temperature (C) 36.9 C 10/06/16 12:18 Heart Rate 82 10/06/16 12:18 Respiratory Rate 18 10/06/16 12:18 Blood Pressure 152/83 H 10/06/16 12:18 O2 Sat (%) 95 10/06/16 12:18 O2 Delivery Mode Room Air Allergies/Adverse Reactions: Penicillins Allergy (Verified 09/02/16 04:46) Home Medications: Medication Instructions Recorded Cbd Oil 05/21/16 Atenolol [Tenormin 25 mg (*)] 25 mg PO DAILY #30 tab 08/28/16 Diclofenac Sodium [Voltaren 50 MG 50 mg PO BID #20 tab 10/06/16 (*)] Medical Decision Making ED Course/Re-evaluation: CHIEF COMPLAINT: "My kidneys are really hurting" HISTORY OF PRESENT ILLNESS: The patient is a 36 y/o male complaining of " kidney pain" onset acutely 2 hours ago. He denies previous history of kidney stones or symptoms like this previously. He denies dysuria or hematuria. He was seen in the ED on Saturday, 5 days ago, due to combativeness after a seizure. He received 15mg IM Versed prehospitally at that event. He otherwise denies recent injury or illness or other pertinent medical history. REVIEW OF SYSTEMS: A 10 point review of systems was performed and is negative with the exception of the elements mentioned in the history of present illness. PHYSICAL EXAM: HR, BP, O2 Sat, RR. Temp noted General Appearance: Alert, well hydrated, appropriate, and non-toxic appearing. Head: Atraumatic without scalp tenderness or obvious injury Eyes: Pupils equal, round, reactive to light and accommodation, EOMI, no trauma , no injection. Ears: Clear bilaterally, no perforation, normal landmarks Nose: Atraumatic, no rhinorrhea, clear. Throat: There is no erythema or exudates, no lesions, normal tonsils, mucus membranes moist. Neck: Supple, nontender, no lymphadenopathy. Respiratory: No retractions, no distress, no wheezes, and no accessory muscle use. Lungs are clear to auscultation bilaterally. Cardiovascular: Regular rate and rhythm, no murmurs, rubs, or gallops. Good capillary refill all extremities. Gastrointestinal: Abdomen is soft, nontender, non-distended, no masses, no rebound, no peritoneal signs. Voluntary abdominal guarding without clear tenderness. Musculoskeletal: Left CVA tenderness. Normal active ROM of all extremities, atraumatic. Neurological: Alert, appropriate, and interactive. The patient has normal DTRs and non-focal cranial nerves, motor, sensory, and cerebellar exam. Skin: No rashes, good turgor, no nodules on palpation. Past medical history: Seizure disorder, hypothyroidism Past surgical history: Denies Family history: Noncontributory Social history: Lives alone Prior medical records reviewed including ED visit 10/02/16 for seizure. DIAGNOSTICS/PROCEDURES/CRITICAL CARE TIME: Study: CT of the Abdomen/Pelvis Indication: Pain Results: CT scan of the abdomen was obtained. The results of the study are negative. The study was read by the radiologist, Dr. Hendricks. I viewed the images myself on the PACS system. DIFFERENTIAL DIAGNOSIS: The differential diagnosis for the patient's flank pain included but was not limited to musculoskeletal causes, kidney stone, pyelonephritis, shingles, diverticulitis, appendicitis, and aortic aneurysm. MEDICAL DECISION MAKING: This is a 36 y/o male that was recently here for combativeness following a seizure and was ultimately [facility]. He complains today of sudden onset left flank pain 2 hours prior to arrival in the ED. He denies other associated symptoms. Plan for IV, labs, UA, abdominal CT, and non-narcotic symptom management. 30mg IV Toradol administered. 1310: Observed patient from the hallway. He is resting comfortably and texting on his phone in no apparent pain. 1345: Patient refused to provide urine sample. His CT is negative for kidney stone. He will be discharged with diclofenac and referral to urology for follow up. He agrees with plan. - Data Points Laboratory Results: Laboratory Results 10/06/16 12:52 10/06/16 12:52 10/06/16 10/06/16 12:52 12:52 WBC 10.54 10^3/uL H 10^3/uL (3.80-9.50) RBC 5.33 10^6/uL 10^6/uL (4.40-6.38) Hgb 14.5 g/dL g/dL (13.7-17.5) Hct 42.7 % % (40.0-51.0) MCV 80.1 fL L fL (81.5-99.8) MCH 27.2 pg L pg (27.9-34.1) MCHC 34.0 g/dL g/dL (32.4-36.7) RDW 13.8 % % (11.5-15.2) Plt Count 285 10^3/uL 10^3/uL (150-400) MPV 9.9 fL fL (8.7-11.7) Neut % (Auto) 71.6 % % (39.3-74.2) Lymph % (Auto) 18.1 % % (15.0-45.0) [place] % (Auto) 8.7 % % (4.5-13.0) Eos % (Auto) 0.9 % % (0.6-7.6) Baso % (Auto) 0.4 % % (0.3-1.7) Nucleat RBC Rel Count 0.0 % % (0.0-0.2) Absolute Neuts (auto) 7.54 10^3/uL H 10^3/uL (1.70-6.50) Absolute Lymphs (auto) 1.91 10^3/uL 10^3/uL (1.00-3.00) Absolute Monos (auto) 0.92 10^3/uL H 10^3/uL (0.30-0.80) Absolute Eos (auto) 0.10 10^3/uL 10^3/uL (0.03-0.40) Absolute Basos (auto) 0.04 10^3/uL 10^3/uL (0.02-0.10) Absolute Nucleated RBC 0.00 10^3/uL 10^3/uL (0-0.01) Immature Gran % 0.3 % % (0.0-1.1) Immature Gran # 0.03 10^3/uL 10^3/uL (0.00-0.10) Sodium 142 mEq/L mEq/L (134-144) Potassium 3.5 mEq/L mEq/L (3.5-5.2) Chloride 104 mEq/L mEq/L (97-110) Carbon Dioxide 23 mEq/l mEq/l (22-31) Anion Gap 15 mEq/L mEq/L (8-16) BUN 9 mg/dL mg/dL (7-23) Creatinine 0.8 mg/dL mg/dL (0.7-1.3) Estimated GFR > 60 Glucose 154 mg/dL H mg/dL (70-100) Calcium 9.7 mg/dL mg/dL (8.5-10.4) Medications Given: Discontinued Medications Sodium Chloride (Ns) 1,000 mls @ 0 mls/hr IV ONCE ONE PRN Reason: Wide Open Stop: 10/06/16 12:38 Last Admin: 10/06/16 12:55 Dose: 1,000 mls Ketorolac Tromethamine (Toradol) 30 mg IVP EDNOW ONE Stop: 10/06/16 12:38 Last Admin: 10/06/16 12:54 Dose: 30 mg Departure - Departure Disposition: Home, Routine, Self-Care Clinical Impression: Left flank pain Condition: Good Instructions: Flank Pain (ED) Additional Instructions: 1. Take diclofenac as prescribed for inflammation and pain. 2. Follow up with your primary care provider or urologist this coming week for continued symptoms. Referrals: Nasir Resendez MD [Primary Care Provider] - As per Instructions Steven Sarmiento MD [Medical Doctor] - As per Instructions Prescriptions: Diclofenac Sodium [Voltaren 50 MG (*)] 50 mg PO BID #20 tab Report Scribed for: Pelon Davidson Report Scribed by: Jeanine Garcia Date of Report: 10/06/16 Time of Report: 13:30
[2016-10-06] MEDS ORDERED: KETOROLAC 30 MG/1 ML SDV IVP ONE (12:37)
[2016-10-06] MEDS ORDERED: NS 1,000 ML IV ONE (12:37)
[2016-10-06 13:03] LABS: % IMMATURE GRANULYOCYTES 0.3 % (0.0-1.1); ABSOLUTE IMMATURE GRANULOCYTES 0.03 10^3/uL (0.00-0.10); ADD DIFF? NO; ADD MORPH? NO; ADD SCAN? NO; ATYPICAL LYMPHOCYTE FLAG 10 (0-99); FRAGMENT RBC FLAG 0 (0-99); HEMATOCRIT 42.7 % (40.0-51.0); HEMOGLOBIN 14.5 g/dL (13.7-17.5); LEFT SHIFT FLG 0 (0-99); LIPEMIA HEMOLYSIS FLAG 90 (0-99); MEAN CELL HEMOGLOBIN 27.2 pg (27.9-34.1); MEAN CELL VOLUME 80.1 fL (81.5-99.8); MEAN PLATELET VOLUME 9.9 fL (8.7-11.7); PLATELET CLUMPS FLAG 10 (0-99); PLATELET COUNT 285 10^3/uL (150-400); RED BLOOD CELL COUNT 5.33 10^6/uL (4.40-6.38); RED CELL DISTRIBUTION WIDTH 13.8 % (11.5-15.2)
[2016-10-06 13:30] LABS: ANION GAP 15 mEq/L (8-16); CALCIUM 9.7 mg/dL (8.5-10.4); CARBON DIOXIDE 23 mEq/l (22-31); CHLORIDE 104 mEq/L (97-110); CREATININE 0.8 mg/dL (0.7-1.3); GLOMERULAR FILTRATION RATE > 60; GLUCOSE 154 mg/dL (70-100); POTASSIUM 3.5 mEq/L (3.5-5.2); SODIUM 142 mEq/L (134-144)
[2016-10-06 14:03] VITALS: BP 145/77; PULSE 88; RESP 16
== END 2016-10-06 14:02 | disposition home or self-care (01) ==
DX: R10.9 Unspecified abdominal pain (principal); Z87.891 Personal history of nicotine dependence
CPT/HCPCS: 74176; 96361; 96374; 99285; J1885

== ENCOUNTER 2016-11-30 17:07 | Emergency (ER) | payer OTHER, MEDICAID ==
[2016-11-30 17:12] VITALS: TEMP 100.2
--- NOTE | 2016-11-30 17:18 | CPEKG ---
Heart Rate: 142 RR Interval: 423 P-R Interval: 94 QRSD Interval: 106 QT Interval: 296 QTC Interval: 455 P [place]: 84 QRS [place]: 61 T Wave [place]: 34 EKG Severity - ABNORMAL ECG - EKG Impression: SINUS TACHYCARDIA EKG Impression: TAMIE, CONSIDER BIATRIAL ABNORMALITIES EKG Impression: ST DEPRESSION, CONSIDER ISCHEMIA, ANT-LAT LDS Electronically Signed By: Cameron Hurtado 01-Dec-2016 00:13:22
[2016-11-30] MEDS ORDERED: ASPIRIN 81 MG CHEWABLE TAB PO ONE (18:00)
[2016-11-30] MEDS ORDERED: LORazepam 2 MG/ML INJ IVP ONE (18:00)
[2016-11-30] MEDS ORDERED: NS 1,000 ML IV ONE (18:00)
--- NOTE | 2016-11-30 18:01 | EDPHY ---
H & P Time Seen by Provider: 11/30/16 17:15 HPI/ROS: Chief complaint. Chest pain HPI. 36-year-old male presents with 2 complaints. Has an abscessed tooth right upper mandible has been bothering him for about a week. He saw dental aid yesterday and was prescribed amoxicillin. He was referred to oral surgery in [place] but has not set up an appointment yet. He also developed chest pressure 1 hour ago. It is left-sided radiates through to his back and shoulder blade. He notes shortness of breath. Thinks he has had some fever as well. His chest discomfort is not worse with exertion, breathing, movement. No unusual leg pain or swelling. ROS Constitutional. Fever Eyes. no problems with vision ENT. Pain and swelling to right upper jaw Cardiovascular. Chest pressure Respiratory. Shortness of breath Abdominal. no abdominal pain, no nausea/vomiting, no diarrhea . no problems urinating MS. no calf pain/swelling, no neck/back pain, no joint pain Skin. no rash Lymph. no swollen glands Neuro. no headache, no dizziness, no difficulty walking or with speech Past Medical/Surgical History: Past medical history seizure disorder Negative family history for early coronary artery disease Social History: Single, nonsmoker, no alcohol Smoking Status: Former smoker Physical Exam: General Appearance: Alert anxious well-developed male moderate distress vital signs show temp 37.9degrees, heart rate 157. Appears quite anxious Eyes: Pupils equal and round no pallor or injection. ENT, tenderness to the right upper wisdom to with some swelling around it. No obvious abscess Respiratory: There are no retractions, lungs are clear to auscultation. Cardiovascular: Regular rate and rhythm. Left anterior chest wall is tender to palpation reproducing his symptoms Gastrointestinal: Abdomen is soft and nontender, no masses, bowel sounds normal. Neurological: Awake and alert, sensory and motor exams grossly normal. Skin: Warm and dry, no rashes. Musculoskeletal: Neck is supple nontender. Extremities symmetrical, full range of motion. Psychiatric: Patient is oriented X 3, there is no agitation. Constitutional: Initial Vital Signs Temperature (C) 37.9 C 11/30/16 17:10 Heart Rate 157 H 11/30/16 17:10 Respiratory Rate 23 H 11/30/16 17:10 Blood Pressure 183/101 H 11/30/16 17:10 O2 Sat (%) 97 11/30/16 17:10 O2 Delivery Mode Room Air Allergies/Adverse Reactions: Penicillins Allergy (Verified 11/30/16 17:10) Home Medications: Medication Instructions Recorded Cbd Oil 05/21/16 Atenolol [Tenormin 25 mg (*)] 25 mg PO DAILY #30 tab 08/28/16 Diclofenac Sodium [Voltaren 50 MG 50 mg PO BID #20 tab 10/06/16 (*)] Atenolol 50 mg PO DAILY #14 tablet 11/30/16 Medical Decision Making - Diagnostics EKG Interpretation: EKG 1. Shows sinus tachycardia with normal interval and axis. Diffuse ST depression probably rate related. No arrhythmia. Rate is 142 EKG 2. Shows normal sinus rhythm with normal interval and axis. QRS is normal there is no ST elevation or depression. No arrhythmia. The rate is 97 Imaging Results: Imaging Impressions Chest X-Ray 11/30/16 18:00 Impression: No acute abnormality, or substantial change from 09/02/2016. Procedures: IV normal saline. 1 L of saline. Ativan and Toradol IV ED Course/Re-evaluation: Re-evaluation 7:00 p.m.. Patient is feeling much better after the Ativan. Heart rate is down to about 118. I asked him about his penicillin allergy and he tells me that his father develops a rash when he takes penicillin. The patient has had 2 days of amoxicillin without trouble IV Unasyn is ordered Re-evaluation 7:35 p.m. patient is feeling much better. Heart rate is about 104. 1st troponin is negative Repeat EKG and troponin and another L of fluid Re-evaluation again 9:10 p.m.. Patient feeling much better. Heart rate less than 100. Patient and I discussed imaging and lab results. We discussed treatment plan including importance of follow-up and further evaluation. He expresses understanding and agreement. I particularly emphasized that he needed to call the oral surgeon to make a follow-up appointment for his tooth. I asked him whether he had followed up with Dr. De La Garza or Endocrinology for his hyperthyroidism and had been prescribed atenolol for this. He did not follow up and is no longer taking the atenolol. Differential Diagnosis: Part of this is anxiety I suspect as well as likely hyperthyroidism. Elevated white count I think his because of his infected tooth. Serial exams of his heart show normal EKGs and normal troponins. I do not think the patient has pneumonia or acute coronary syndrome - Data Points Laboratory Results: Laboratory Results 11/30/16 17:30 11/30/16 17:30 11/30/16 11/30/16 11/30/16 20:00 17:30 17:30 WBC RBC Hgb Hct MCV MCH MCHC RDW Plt Count MPV Neut % (Auto) Lymph % (Auto) [place] % (Auto) Eos % (Auto) Baso % (Auto) Nucleat RBC Rel Count Absolute Neuts (auto) Absolute Lymphs (auto) Absolute Monos (auto) Absolute Eos (auto) Absolute Basos (auto) Absolute Nucleated RBC Immature Gran % Immature Gran # D-Dimer < 0.27 ug/mLFEU ug/mLFEU (0.00-0.50) Sodium 138 mEq/L mEq/L (134-144) Potassium 3.7 mEq/L mEq/L (3.5-5.2) Chloride 103 mEq/L mEq/L (97-110) Carbon Dioxide 18 mEq/l L mEq/l (22-31) Anion Gap 17 mEq/L H mEq/L (8-16) BUN 16 mg/dL mg/dL (7-23) Creatinine 1.2 mg/dL mg/dL (0.7-1.3) Estimated GFR > 60 Glucose 165 mg/dL H mg/dL (70-100) Calcium 9.8 mg/dL mg/dL (8.5-10.4) Troponin I < 0.012 ng/mL ng/mL < 0.012 ng/mL ng/mL (0-0.034) (0-0.034) TSH 0.918 uIU/mL uIU/mL (0.465-4.680) 11/30/16 17:30 WBC 14.97 10^3/uL H 10^3/uL (3.80-9.50) RBC 5.51 10^6/uL 10^6/uL (4.40-6.38) Hgb 14.9 g/dL g/dL (13.7-17.5) Hct 44.0 % % (40.0-51.0) MCV 79.9 fL L fL (81.5-99.8) MCH 27.0 pg L pg (27.9-34.1) MCHC 33.9 g/dL g/dL (32.4-36.7) RDW 14.1 % % (11.5-15.2) Plt Count 298 10^3/uL 10^3/uL (150-400) MPV 10.6 fL fL (8.7-11.7) Neut % (Auto) 71.8 % % (39.3-74.2) Lymph % (Auto) 18.4 % % (15.0-45.0) [place] % (Auto) 8.4 % % (4.5-13.0) Eos % (Auto) 0.6 % % (0.6-7.6) Baso % (Auto) 0.4 % % (0.3-1.7) Nucleat RBC Rel Count 0.0 % % (0.0-0.2) Absolute Neuts (auto) 10.76 10^3/uL H 10^3/uL (1.70-6.50) Absolute Lymphs (auto) 2.75 10^3/uL 10^3/uL (1.00-3.00) Absolute Monos (auto) 1.25 10^3/uL H 10^3/uL (0.30-0.80) Absolute Eos (auto) 0.09 10^3/uL 10^3/uL (0.03-0.40) Absolute Basos (auto) 0.06 10^3/uL 10^3/uL (0.02-0.10) Absolute Nucleated RBC 0.00 10^3/uL 10^3/uL (0-0.01) Immature Gran % 0.4 % % (0.0-1.1) Immature Gran # 0.06 10^3/uL 10^3/uL (0.00-0.10) D-Dimer Sodium Potassium Chloride Carbon Dioxide Anion Gap BUN Creatinine Estimated GFR Glucose Calcium Troponin I TSH Medications Given: Discontinued Medications Hydrocodone Bitart/Acetaminophen ([place] 5/325) 1 tab PO EDNOW ONE Stop: 11/30/16 19:55 Last Admin: 11/30/16 20:01 Dose: 1 tab Hydrocodone Bitart/Acetaminophen ([place] 5/325) 1 tab PO EDNOW ONE Stop: 11/30/16 20:02 Last Admin: 11/30/16 20:01 Dose: Not Given Aspirin (Aspirin) 324 mg PO EDNOW ONE Stop: 11/30/16 18:01 Last Admin: 11/30/16 18:11 Dose: 324 mg Sodium Chloride (Ns) 1,000 mls @ 0 mls/hr IV ONCE ONE PRN Reason: Wide Open Stop: 11/30/16 18:01 Last Admin: 11/30/16 18:00 Dose: 1,000 mls Ampicillin Sodium/Sulbactam (Sodium 1.5 gm/ Sodium Chloride) 50 mls @ 200 mls/ hr IV EDNOW ONE PRN Reason: Protocol Stop: 11/30/16 19:14 Last Admin: 11/30/16 19:35 Dose: 50 mls Sodium Chloride (Ns) 500 mls @ 0 mls/hr IV ONCE ONE PRN Reason: As Directed Stop: 11/30/16 19:41 Last Admin: 11/30/16 19:48 Dose: 500 mls Ketorolac Tromethamine (Toradol) 30 mg IVP EDNOW ONE Stop: 11/30/16 18:05 Last Admin: 11/30/16 18:12 Dose: 30 mg Lorazepam (Ativan Injection) 1 mg IVP EDNOW ONE Stop: 11/30/16 18:01 Last Admin: 11/30/16 18:11 Dose: 1 mg Departure - Departure Disposition: Home, Routine, Self-Care Clinical Impression: Pain due to dental caries, Hyperthyroidism Condition: Good Instructions: Dental Caries (ED), Hyperthyroidism (ED) Additional Instructions: Continue to take your amoxicillin as antibiotic for your tooth. On Saturday morning call the oral surgeon to arrange follow-up appointment. Atenolol to help control your heart rate because your thyroid is over active. Follow up with Dr. Resendez or I will give you the name of Endocrinology. Return for worsening symptoms Referrals: Nasir Resendez MD [Primary Care Provider] - 2-3 days without fail Danny Jones MD [Medical Doctor] - 5-7 days, call for appt. Prescriptions: Atenolol 50 mg PO DAILY #14 tablet
[2016-11-30] MEDS ORDERED: KETOROLAC 30 MG/1 ML SDV IVP ONE (18:04)
[2016-11-30 18:06] LABS: % IMMATURE GRANULYOCYTES 0.4 % (0.0-1.1); ABSOLUTE IMMATURE GRANULOCYTES 0.06 10^3/uL (0.00-0.10); ADD DIFF? NO; ADD MORPH? NO; ADD SCAN? NO; ATYPICAL LYMPHOCYTE FLAG 0 (0-99); FRAGMENT RBC FLAG 0 (0-99); HEMOGLOBIN 14.9 g/dL (13.7-17.5); LEFT SHIFT FLG 0 (0-99); LIPEMIA HEMOLYSIS FLAG 90 (0-99); MEAN CELL HEMOGLOBIN CONCENTR. 33.9 g/dL (32.4-36.7); MEAN CELL VOLUME 79.9 fL (81.5-99.8); MEAN PLATELET VOLUME 10.6 fL (8.7-11.7); PLATELET CLUMPS FLAG 0 (0-99); PLATELET COUNT 298 10^3/uL (150-400); RED BLOOD CELL COUNT 5.51 10^6/uL (4.40-6.38); RED CELL DISTRIBUTION WIDTH 14.1 % (11.5-15.2)
[2016-11-30 18:16] LABS: ANION GAP 17 mEq/L (8-16); CALCIUM 9.8 mg/dL (8.5-10.4); CARBON DIOXIDE 18 mEq/l (22-31); CHLORIDE 103 mEq/L (97-110); CREATININE 1.2 mg/dL (0.7-1.3); GLOMERULAR FILTRATION RATE > 60; GLUCOSE 165 mg/dL (70-100); POTASSIUM 3.7 mEq/L (3.5-5.2); SODIUM 138 mEq/L (134-144)
[2016-11-30 18:28] LABS: TROPONIN I < 0.012 ng/mL (0-0.034)
[2016-11-30] MEDS ORDERED: AMPICILLIN/SULBACTAM 1.5 GM in NS 50 ML IV ONE (19:00)
[2016-11-30] MEDS ORDERED: NS 500 ML IV ONE (19:40)
[2016-11-30] MEDS ORDERED: HYDROCODONE/APAP 5/325 TAB PO ONE ×2 (19:54→20:01)
[2016-11-30] MEDS ORDERED: HYDROCODONE/APAP 5/325 TAB ONE (19:55)
--- NOTE | 2016-11-30 20:11 | CPEKG ---
Heart Rate: 97 RR Interval: 619 P-R Interval: 156 QRSD Interval: 116 QT Interval: 372 QTC Interval: 473 P [place]: 86 QRS [place]: 24 T Wave [place]: 22 EKG Severity - ABNORMAL ECG - EKG Impression: SINUS RHYTHM EKG Impression: NONSPECIFIC INTRAVENTRICULAR CONDUCTION DELAY Electronically Signed By: Cameron Hurtado 01-Dec-2016 00:09:29
[2016-11-30 20:14] VITALS: RESP 18
[2016-11-30 21:30] VITALS: BP 128/78; PULSE 88; O2SAT 97
== END 2016-11-30 21:29 | disposition home or self-care (01) ==
DX: E05.90 Thyrotoxicosis, unspecified without thyrotoxic crisis or storm (principal); K02.9 Dental caries, unspecified; Z87.891 Personal history of nicotine dependence
CPT/HCPCS: 93005; 96361; 96365; 96375; 99285; J1885; J2060

== ENCOUNTER 2017-09-22 15:43 | Emergency (ER) | payer OTHER, MEDICAID ==
--- NOTE | 2017-09-22 15:46 | EDPHY ---
H & P Source: Patient Exam Limitations: No limitations - Personal History Tetanus Vaccine Date: < 10 years - Medical/Surgical History Hx Asthma: No Hx Chronic Respiratory Disease: No Hx Diabetes: No Hx Cardiac Disease: No Hx Renal Disease: No Hx Cirrhosis: No Hx Alcoholism: No Hx HIV/AIDS: No Hx Splenectomy or Spleen Trauma: No Other PMH: pmh: Epilepsy. psh: denies - Social History Smoking Status: Former smoker Time Seen by Provider: 09/22/17 15:45 HPI/ROS: CHIEF COMPLAINT: Multiple seizures HISTORY OF PRESENT ILLNESS: The patient presents to the ED after multiple witnessed seizures. He arrives via EMS. He is postictal and unable to provide history. According to his mother he had 3-4 seizures today. The patient typically takes Lamictal, Dilantin and CBD oil for this condition. She believes he has been compliant with this medication. The patient had been given a total of 15 mg of Versed by paramedics prior to arrival. The patient reportedly did have some vomiting earlier today. The patient has been seen in the emergency department a number of times for seizures in the past. REVIEW OF SYSTEMS: A comprehensive 10 point review of systems is unobtainable secondary his current postictal state. (Andrea Serrano) I did not see this patient. The patient was seen and cared for by Dr. Serrano ( [facility]) - Physical Exam Exam: General Appearance: Postictal Eyes: Pupils equal and round no pallor or injection ENT, Mouth: Mucous membranes moist Respiratory: There are no retractions, lungs are clear to auscultation Cardiovascular: Regular rate and rhythm Gastrointestinal: Abdomen is soft and nontender, no masses, bowel sounds normal Neurological: Withdrawals to pain all 4 extremities, currently restrained Skin: Warm and dry, no rashes Musculoskeletal: Neck is supple nontender Extremities: symmetrical, full range of motion (Andrea Serrano) Constitutional: Initial Vital Signs Temperature (C) 36.5 C 09/22/17 15:49 Heart Rate 109 H 09/22/17 15:49 Respiratory Rate 20 09/22/17 15:49 Blood Pressure 150/78 H 09/22/17 15:49 O2 Sat (%) 96 09/22/17 15:49 O2 Delivery Mode Room Air Allergies/Adverse Reactions: Penicillins Allergy (Verified 11/30/16 17:10) Home Medications: Medication Instructions Recorded Dilantin 09/23/17 Medical Decision Making - Diagnostics EKG Interpretation: EKG: Complete interpretation has been separately recorded in the [employer] archive. Summary impression: Sinus rhythm, rate 99, no ST segment elevation or depression, no arrhythmia (Andrea Serrano) ED Course/Re-evaluation: I reviewed the patient's past medical records. He has a history of frequent seizures. He has been hospitalized for prolonged postictal states in the past. The patient is noted to have chronically have leukocytosis from a stress reaction from his seizures. The patient was noted to be postictal upon arrival. The patient received additional 2 mg of Ativan for combative behavior. The patient was noted to have a subtherapeutic Dilantin level. The the patient did remain slightly postictal. A noncontrast head CT scan initially was ordered. The patient has declined this study. The patient was re-evaluated at 6:45 p.m. and he is much more oriented. The patient does admit that he has been noncompliant with his Dilantin secondary to concerns about his dentition. 1 g of IV Dilantin was ordered. 7:00 p.m.: The patient's neurologic examination has markedly improved. He is no longer postictal. The patient states that he wants to be discharged home. 8:00 p.m.: The patient's Dilantin is infusing. The patient's mother would like to take him home. He does have someone who can watch him at home for recurrent seizure and bring him back to the emergency department. The patient was offered admission to the hospital however has adamantly declined. 9:30 p.m.: Dilantin currently infusing. The patient will be ambulated after this is completed. If he is ambulatory he will be discharged home. The patient is turned over to Dr. Hurtado at shift change pending reassessment. (Andrea Serrano) Differential Diagnosis: Differential diagnosis considered includes status epilepticus, seizure disorder , metabolic abnormality, meningitis, metabolic syndrome (Andrea Serrano) - Data Points Laboratory Results: Laboratory Results 09/22/17 16:40 09/22/17 16:40 Medications Given: Discontinued Medications Sodium Chloride (Ns) 1,000 mls @ 0 mls/hr IV ONCE ONE; Wide Open PRN Reason: Protocol Stop: 09/22/17 15:54 Last Admin: 09/22/17 16:11 Dose: 1,000 mls Phenytoin Sodium 1,000 mg/ (Sodium Chloride) 120 mls @ 144 mls/hr IV ONCE ONE Stop: 09/22/17 19:24 Last Admin: 09/22/17 20:18 Dose: 120 mls Lorazepam (Ativan Injection) 2 mg IVP EDNOW ONE Stop: 09/22/17 16:10 Last Admin: 09/22/17 16:12 Dose: 2 mg Lorazepam (Ativan Injection) 1 mg IVP EDNOW ONE Stop: 09/22/17 17:08 Last Admin: 09/22/17 17:10 Dose: 1 mg Departure - Departure Disposition: Home, Routine, Self-Care Clinical Impression: Seizure disorder Condition: Good Instructions: Epilepsy (ED) Additional Instructions: 1. Your Dilantin level is subtherapeutic. Given your seizure history I do recommend that you take her medication as prescribed. 2. Please return to the emergency department for recurrent seizure, severe headache, numbness, weakness or other concerns. 3. Please follow up with your primary care provider neurologist as scheduled. Referrals: Fabiano Fine MD [Primary Care Provider] - As per Instructions
[2017-09-22] MEDS ORDERED: NS 1,000 ML IV ONE (15:53)
[2017-09-22] MEDS ORDERED: LORazepam 2 MG/ML INJ ONE (16:03)
[2017-09-22] MEDS ORDERED: LORazepam 2 MG/ML INJ IVP ONE ×2 (16:09→17:07)
--- NOTE | 2017-09-22 16:29 | CPEKG ---
Heart Rate: 99 RR Interval: 606 P-R Interval: 136 QRSD Interval: 98 QT Interval: 348 QTC Interval: 447 P [place]: 76 QRS [place]: 66 T Wave [place]: 48 EKG Severity - NORMAL ECG - EKG Impression: SINUS RHYTHM Electronically Signed By: Andrea Serrano 22-Sep-2017 17:36:14
[2017-09-22 16:50] LABS: PLATELET COUNT 262 10^3/uL (150-400)
[2017-09-22 18:23] VITALS: RESP 16
[2017-09-22] MEDS ORDERED: PHENYTOIN SODIUM 1,000 MG in NS 100 ML IV ONE (18:35)
[2017-09-22 21:43] VITALS: BP 122/73; PULSE 97; TEMP 98.2; O2SAT 95
== END 2017-09-22 21:41 | disposition home or self-care (01) ==
LOC: EDUNIT#
DX: G40.909 Epilepsy, unspecified, not intractable, without status epilepticus (principal); E86.9 Volume depletion, unspecified; Z87.891 Personal history of nicotine dependence
CPT/HCPCS: 93005; 96365; 96375; 96376; 99285; J1165; J2060

== ENCOUNTER 2017-09-23 20:58 | Emergency (ER) | payer OTHER, MEDICAID ==
[2017-09-23 21:22] VITALS: TEMP 96.8
--- NOTE | 2017-09-23 22:06 | EDPHY ---
H & P Stated Complaint: Headache x 1 hour, visual changes--seizure x 6 yesterday Time Seen by Provider: 09/23/17 22:06 HPI/ROS: CHIEF COMPLAINT: Headache HISTORY OF PRESENT ILLNESS: The patient presents to the ED with chief complaint of headache x1 hour. The patient has a history of epilepsy. He was seen in the emergency department yesterday after experiencing multiple seizures. The patient was ultimately found to be subtherapeutic on Dilantin and discharged home. The patient was offered a CT scan of his head last night which he declined. The patient states that he felt fine when he left the department yesterday. The patient did not have any history of fall or trauma. He has been essentially asymptomatic until the development of his headache 1 hr ago. The patient does report some blurry vision. He denies any neck pain, fever, peripheral numbness or weakness. The patient denies prior history of migraines. He denies any additional complaints. REVIEW OF SYSTEMS: A comprehensive 10 point review of systems is otherwise negative aside from elements mentioned in the history of present illness. Source: Patient - Personal History Tetanus Vaccine Date: < 10 years - Medical/Surgical History Hx Asthma: No Hx Chronic Respiratory Disease: No Hx Diabetes: No Hx Cardiac Disease: No Hx Renal Disease: No Hx Cirrhosis: No Hx Alcoholism: No Hx HIV/AIDS: No Hx Splenectomy or Spleen Trauma: No Other PMH: pmh: Epilepsy. psh: denies - Social History Smoking Status: Former smoker - Physical Exam Exam: General Appearance: Alert, no distress Head: Normocephalic atraumatic Eyes: Pupils equal and round no pallor or injection ENT, Mouth: Mucous membranes moist Respiratory: There are no retractions, lungs are clear to auscultation Cardiovascular: Regular rate and rhythm Gastrointestinal: Abdomen is soft and nontender, no masses, bowel sounds normal Neurological: A&O, normal motor function, normal sensory exam, normal cranial nerves Skin: Warm and dry, no rashes Musculoskeletal: Neck is supple nontender Extremities: symmetrical, full range of motion Constitutional: Initial Vital Signs Temperature (C) 36.0 C 09/23/17 21:19 Heart Rate 85 09/23/17 21:19 Respiratory Rate 18 09/23/17 21:19 Blood Pressure 150/88 H 09/23/17 21: O2 Sat (%) 95 09/23/17 21:19 O2 Delivery Mode Room Air Allergies/Adverse Reactions: Penicillins Allergy (Verified 11/30/16 17:10) Home Medications: Medication Instructions Recorded Dilantin 09/23/17 Medical Decision Making - Diagnostics Imaging Results: Imaging Impressions Head CT 09/23/17 22:06 Impression: Stable noncontrast CT of the brain. Results called to Dr. Delano Abarca at 10:25 PM. at the time of the interpretation. ED Course/Re-evaluation: The patient presents to the ED for evaluation of an atraumatic headache. The patient reports his symptoms began approximately an hour ago. He has had some improvement of his headache since his arrival in the emergency department. He is noted to be neurologically intact without evidence of meningitis. The patient was taken for noncontrast head CT scan which demonstrates no evidence of an acute hemorrhage or acute abnormality. 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 The patient did received 30 mg of IV Toradol. I re-evaluated the patient at 11:00 p.m.. Differential Diagnosis: Differential diagnosis considered includes intracranial hemorrhage, tension headache, migraine syndrome, sinusitis Departure - Departure Disposition: Home, Routine, Self-Care Clinical Impression: Headache Condition: Good Instructions: Tension Headache (ED) Additional Instructions: 1. Please continue your medications as prescribed. 2. Your head CT scan demonstrates no evidence of bleeding 3. Take Ibuprofen or Motrin 600 mg by mouth three times a day. 4. Please return to the ED for severe headache, fever, markedly worsening symptoms or other concerns. 5. Please follow up with your primary care provider as scheduled. Referrals: Fabiano Fine MD [Medical Doctor] - As per Instructions
[2017-09-23] MEDS ORDERED: KETOROLAC 30 MG/1 ML SDV IVP ONE (22:31)
[2017-09-23 23:09] VITALS: BP 136/83; PULSE 88; RESP 16; O2SAT 96
== END 2017-09-23 23:49 | disposition home or self-care (01) ==
LOC: EDUNIT#
DX: R51 Headache (principal); Z87.891 Personal history of nicotine dependence
CPT/HCPCS: 70450; 96374; 99285; J1885

== ENCOUNTER 2017-09-24 04:32 | Emergency (ER) | payer OTHER, MEDICAID ==
[2017-09-24 04:45] VITALS: RESP 18
[2017-09-24] MEDS ORDERED: IBUPROFEN 800 MG TAB PO ONE (04:45)
[2017-09-24] MEDS ORDERED: NS 1,000 ML IV ONE ×2 (04:45→05:45)
[2017-09-24] MEDS ORDERED: LORazepam 2 MG/ML INJ IVP ONE (05:00)
--- NOTE | 2017-09-24 05:00 | EDPHY ---
H & P Stated Complaint: BROWNLEE, stiff neck HPI/ROS: HPI CHIEF COMPLAINT: Multiple complaints, recently seen HISTORY OF PRESENT ILLNESS: This patient is a 37-year-old male why I am very familiar with as I have seen him multiple times in the emergency room, he has a longstanding history of seizures for which she controls his seizures with CBD or will, and Dilantin. Was recently here in the emergency room on September 22 for what appeared to be recurrent seizures. At that time he had elevated CK, low bicarb, elevated leukocytosis consistent with most likely seizure activity. Also a low Dilantin level. He apparently was postictal and improved over his ER course. That time he declined CT scan of his head. He then was seen last night on August 23 for headache, and some blurry vision. That time he had a workup which included CT scan head without contrast that was negative for acute bleed or tumor. He states he felt better after pain medicine and went home. He now returns to the emergency room for 3rd day in a row stating that the main reason he came back is because he is concerned that he may have a seizure. He distally reports to me that he has a posterior headache at the top of her posterior occiput in the center. Is only located in that area. He denies any vomiting or focal numbness or tingling he denies any focal weakness. He did report that his neck seemed stiffer than usual earlier however this has resolved. He arrives to the emergency room with normal vitals and is afebrile. There are no meningeal signs on exam. He has full range of motion of his neck able to touch his chin to his chest very quickly without difficulty and rotate his head side to side as well as backwards without any neck pain. No neck stiffness at this time. He does complain of a 2/10 headache in the posterior occiput in the metal. It does not radiate anywhere. He denies any double vision. Denies vomiting, denies chest pain or shortness of breath. Denies fever recent illness. No lower back pain. Denies any focal numbness or tingling or weakness. When I asked the patient does he feel anxious about his seizures, also he states he is very stressed. He states he is currently going through a divorce. He states causing a great deal of stress and anxiety and he thinks this may be contributing to his seizure state as well as headache. He would like anxiety medicine here in emergency room. Past Medical History: Seizures Past Surgical History: No surgical history Social History: CBD oral, denies other illicit drugs or alcohol. Lives locally. Family History: Noncontributory ROS REVIEW OF SYSTEMS: A comprehensive 10 point review of systems is otherwise negative aside from elements mentioned in the history of present illness. Exam Constitutional appears well nontoxic no acute distress triage nursing summary reviewed, vital signs reviewed, awake/alert. Eyes normal conjunctivae and sclera, EOMI, PERRLA. HENT head/neck is atraumatic, no meningeal signs, no stiff neck, no rigidity, full range of motion, good flexion and extension of the head, good lateral rotation to either side, moist mucus membranes, no epistaxis, neck supple/ no meningismus, no raccoon eyes. Respiratory clear to auscultation bilaterally, normal breath sounds, no respiratory distress, no wheezing. Cardiovascular rate normal, regular rhythm, no murmur, no edema, distal pulses normal. Gastrointestinal soft, non-tender, no rebound, no guarding, normal bowel sounds, no distension, no pulsatile mass. Genitourinary no CVA tenderness. Musculoskeletal no midline vertebral tenderness, full range of motion, no calf swelling, no tenderness of extremities, no meningismus, good pulses, neurovascularly intact. Skin pink, warm, & dry, no rash, skin atraumatic. Neurologic unremarkable neurological exam, no focal neuro deficits appreciated, awake, alert and oriented x 3, AAOx3, moves all 4 extremities equally, motor intact, sensory intact, CN II-XII intact, normal cerebellar, normal vision, normal speech. Psychiatric normal mood/affect. Heme/Lymph/Immune no lymphadenopathy. Differential Diagnosis: Includes but is not limited to in a particular order acute anxiety, panic attack, tension headache, cluster headache, intracranial bleed, highly doubt meningitis given how well this patient looks he has no stiff neck, no fever has a normal neurological exam. Medical Decision Making: Plan for this patient IV establishment blood draw, check electrolytes, check CK, I do not feel that he needs any reimaging as he just recently had a CT scan that was normal. I will hydrate him with IV fluids. Additionally he is asking for anxiety medicine will give him 0.5 mg IV Ativan to see if this improves his anxiety. Re-evaluation: 0657: Blood work has been reviewed. His CK was initially elevated at 2800. He has received 2 L of fluid here in the emergency room at has improved down to 2300. He has no renal insufficiency. I did go re-evaluate was resting comfortably no acute distress. He does state he feels better after Ativan. I have encouraged him to drink lots of fluids over the next 48 hr. He understands return precautions he has worsening headache, fever, muscle aches, trouble urinating he should return emergency room she understands. Additionally for his anxiety do recommend he follows up with his primary care doctor. He is comfortable this plan. Source: Patient, Old records - Personal History Current Tetanus/Diphtheria Vaccine: Yes Tetanus Vaccine Date: < 10 years - Medical/Surgical History Hx Asthma: No Hx Chronic Respiratory Disease: No Hx Diabetes: No Hx Cardiac Disease: No Hx Renal Disease: No Hx Cirrhosis: No Hx Alcoholism: No Hx HIV/AIDS: No Hx Splenectomy or Spleen Trauma: No Other PMH: pmh: Epilepsy. psh: denies - Social History Smoking Status: Former smoker Constitutional: Initial Vital Signs Temperature (C) 37.1 C 09/24/17 04:44 Heart Rate 78 09/24/17 04:44 Respiratory Rate 18 09/24/17 04:44 Blood Pressure 128/102 H 09/24/17 04:44 O2 Sat (%) 94 09/24/17 04:44 O2 Delivery Mode Room Air Allergies/Adverse Reactions: Penicillins Allergy (Verified 11/30/16 17:10) Home Medications: Medication Instructions Recorded Dilantin 09/23/17 Cbd Oil 09/24/17 Medical Decision Making - Data Points Laboratory Results: Laboratory Results 09/24/17 03:55 09/24/17 03:55 09/24/17 09/24/17 09/24/17 06:26 03:55 03:55 WBC 13.04 10^3/uL H D 10^3/uL (3.80-9.50) RBC 4.87 10^6/uL 10^6/uL (4.40-6.38) Hgb 13.8 g/dL g/dL (13.7-17.5) Hct 39.8 % L % (40.0-51.0) MCV 81.7 fL fL (81.5-99.8) MCH 28.3 pg pg (27.9-34.1) MCHC 34.7 g/dL g/dL (32.4-36.7) RDW 14.0 % % (11.5-15.2) Plt Count 248 10^3/uL 10^3/uL (150-400) MPV 10.0 fL fL (8.7-11.7) Neut % (Auto) 70.2 % % (39.3-74.2) Lymph % (Auto) 18.6 % % (15.0-45.0) [place] % (Auto) 10.3 % % (4.5-13.0) Eos % (Auto) 0.2 % L % (0.6-7.6) Baso % (Auto) 0.4 % % (0.3-1.7) Nucleat RBC Rel Count 0.0 % % (0.0-0.2) Absolute Neuts (auto) 9.15 10^3/uL H 10^3/uL (1.70-6.50) Absolute Lymphs (auto) 2.43 10^3/uL 10^3/uL (1.00-3.00) Absolute Monos (auto) 1.34 10^3/uL H 10^3/uL (0.30-0.80) Absolute Eos (auto) 0.03 10^3/uL 10^3/uL (0.03-0.40) Absolute Basos (auto) 0.05 10^3/uL 10^3/uL (0.02-0.10) Absolute Nucleated RBC 0.00 10^3/uL 10^3/uL (0-0.01) Immature Gran % 0.3 % % (0.0-1.1) Immature Gran # 0.04 10^3/uL 10^3/uL (0.00-0.10) Sodium 144 mEq/L mEq/L (135-145) Potassium 3.5 mEq/L mEq/L (3.5-5.2) Chloride 107 mEq/L mEq/L (97-110) Carbon Dioxide 22 mEq/l D mEq/l (22-31) Anion Gap 15 mEq/L mEq/L (8-16) BUN 8 mg/dL mg/dL (7-23) Creatinine 1.1 mg/dL mg/dL (0.7-1.3) Estimated GFR > 60 Glucose 121 mg/dL H mg/dL (70-100) Calcium 9.7 mg/dL mg/dL (8.5-10.4) Creatine Kinase 2316 IU/L H IU/L 2681 IU/L H IU/L (0-224) (0-224) CK-MB (CK-2) Fraction Pending 3.92 ng/mL H ng/mL (0.00-3.19) CK-MB (CK-2) % Pending 0.1 % % (0.0-4.0) Creatine Kinase Interp Pending NEGATIVE (NEGATIVE) Phenytoin 10.6 mcg/mL mcg/mL (10.0-20.0) Medications Given: Discontinued Medications Sodium Chloride (Ns) 1,000 mls @ 0 mls/hr IV ONCE ONE PRN Reason: Wide Open Stop: 09/24/17 04:46 Last Admin: 09/24/17 04:50 Dose: 1,000 mls Sodium Chloride (Ns) 1,000 mls @ 0 mls/hr IV ONCE ONE PRN Reason: Wide Open Stop: 09/24/17 05:46 Last Admin: 09/24/17 05:53 Dose: 1,000 mls Ibuprofen (Motrin) 800 mg PO EDNOW ONE Stop: 09/24/17 04:46 Last Admin: 09/24/17 04:50 Dose: 800 mg Lorazepam (Ativan Injection) 0.5 mg IVP EDNOW ONE Stop: 09/24/17 05:01 Last Admin: 09/24/17 05:15 Dose: 0.5 mg Departure - Departure Disposition: Home, Routine, Self-Care Clinical Impression: Anxiety Rhabdomyolysis Qualifiers: Rhabdomyolysis type: non-traumatic Qualified Code(s): M62.82 - Rhabdomyolysis Condition: Good Instructions: Anxiety (ED), Rhabdomyolysis (ED) Additional Instructions: 1. Make sure to drink lots of fluids over the next 2 days. 2. Follow up with her primary care doctor. 3. Return to the emergency room if you have worsening symptoms questions or concerns. Referrals: Patient,NotPresent [Unknown] - As per Instructions
[2017-09-24 05:16] LABS: PLATELET COUNT 248 10^3/uL (150-400)
[2017-09-24 05:40] LABS: CREATINE KINASE 2681 IU/L (0-224)
[2017-09-24 06:56] LABS: CREATINE KINASE 2316 IU/L (0-224)
[2017-09-24 07:07] VITALS: BP 133/78; PULSE 82; TEMP 98.6; O2SAT 96
== END 2017-09-24 07:06 | disposition home or self-care (01) ==
LOC: EDUNIT#
DX: F41.9 Anxiety disorder, unspecified (principal); M62.82 Rhabdomyolysis; Z87.891 Personal history of nicotine dependence
CPT/HCPCS: 96361; 96374; 99284; J2060

== ENCOUNTER 2017-12-24 20:18 | Emergency (ER) | payer OTHER, MEDICAID ==
--- NOTE | 2017-12-24 21:00 | EDPHY ---
HPI/HX/ROS/PE/MDM Narrative: CHIEF COMPLAINT: Seizure HPI: This patient is a 37 year old male with history of epilepsy. He had two seizures yesterday, and continues to feel unwell today. He has tried numerous antiepileptic medications in the past and currently takes 500mg phenytoin daily. He woke this morning and felt generalized numbness and paresthesias in his fingers and toes. He endorses lower abdominal pain and lack of appetite. He has a metallic taste in his mouth. Generally he would feel well by this time following a seizure, so he presents for evaluation. He did not miss any doses of his phenytoin. He takes diazepam for muscle spasms and did miss a dose of that yesterday. He denies headache, fever, chest pain, shortness of breath, vomiting, diarrhea, urinary complaints, or other associated symptoms. REVIEW OF SYSTEMS: Aside from elements discussed in the HPI, a comprehensive 10-point review of systems was reviewed and is negative. PMH: Epilepsy. SOCIAL HISTORY: Friend at bedside. Lives in [place]. PCP: Dr. Resendez. PHYSICAL EXAM: General:Patient is alert, in no acute distress. ENT:Eyes are normal to inspection. ENT inspection normal. Neck: Normal inspection. Full range of motion. Respiratory:No respiratory distress. Breath sounds normal bilaterally. Cardiovascular: Regular rate and rhythm. Strong peripheral pulses. Normal cap refill. Abdomen:The abdomen is nontender to palpation. There are no peritoneal signs. There are normal bowel sounds. Back: Normal to inspection. No tenderness to palpation. Skin: Normal color. No rash. Warm and dry. Extremities: Normal appearance. Full range of motion. Neuro: Oriented x3. Normal motor function. Normal sensory function. ED Course: 37 y/o male with history of epilepsy presents with extremity paresthesias and abdominal discomfort following two seizures yesterday. Plan for labs including CBC, chemistries. Plan to administer 1L IV NS. Laboratory studies unremarkable. 22:15 Reassessed patient. Plan to discharge home in good condition. Follow up and return precautions discussed. He is comfortable with this plan. MDM: This patient presents with very unusual symptoms of total body loss of sensation as well as tasting only metal when he eats or drinks anything. His detailed neuro exam is completely normal and he clearly his intact sensation in all limbs. His labs reveal no sign of electrolyte abnormality, and there are no signs of phenytoin toxicity on exam - gait is normal and mental status is hyperactive, if anything. I see no indication for neuroimaging at this time. Review of patient's chart reveals numerous visits to the ED related to anxiety and similar concerns, so I think this is the likely etiology. - Data Points Laboratory Results: Laboratory Results 12/24/17 21:11 12/24/17 21:11 12/24/17 12/24/17 21:11 21:11 WBC 12.93 10^3/uL H 10^3/uL (3.80-9.50) RBC 4.98 10^6/uL 10^6/uL (4.40-6.38) Hgb 14.2 g/dL g/dL (13.7-17.5) Hct 40.9 % % (40.0-51.0) MCV 82.1 fL fL (81.5-99.8) MCH 28.5 pg pg (27.9-34.1) MCHC 34.7 g/dL g/dL (32.4-36.7) RDW 14.4 % % (11.5-15.2) Plt Count 285 10^3/uL 10^3/uL (150-400) MPV 9.7 fL fL (8.7-11.7) Neut % (Auto) 68.8 % % (39.3-74.2) Lymph % (Auto) 20.3 % % (15.0-45.0) [place] % (Auto) 9.8 % % (4.5-13.0) Eos % (Auto) 0.5 % L % (0.6-7.6) Baso % (Auto) 0.4 % % (0.3-1.7) Nucleat RBC Rel Count 0.0 % % (0.0-0.2) Absolute Neuts (auto) 8.88 10^3/uL H 10^3/uL (1.70-6.50) Absolute Lymphs (auto) 2.63 10^3/uL 10^3/uL (1.00-3.00) Absolute Monos (auto) 1.27 10^3/uL H 10^3/uL (0.30-0.80) Absolute Eos (auto) 0.07 10^3/uL 10^3/uL (0.03-0.40) Absolute Basos (auto) 0.05 10^3/uL 10^3/uL (0.02-0.10) Absolute Nucleated RBC 0.00 10^3/uL 10^3/uL (0-0.01) Immature Gran % 0.2 % % (0.0-1.1) Immature Gran # 0.03 10^3/uL 10^3/uL (0.00-0.10) Sodium 141 mEq/L mEq/L (135-145) Potassium 4.2 mEq/L mEq/L (3.3-5.0) Chloride 105 mEq/L mEq/L (97-110) Carbon Dioxide 23 mEq/l mEq/l (22-31) Anion Gap 13 mEq/L mEq/L (8-16) BUN 9 mg/dL mg/dL (7-23) Creatinine 0.8 mg/dL mg/dL (0.7-1.3) Estimated GFR > 60 Glucose 74 mg/dL mg/dL (70-100) Calcium 9.0 mg/dL mg/dL (8.5-10.4) Medications Given: Discontinued Medications Sodium Chloride (Ns) 1,000 mls @ 0 mls/hr IV EDNOW ONE; Wide Open PRN Reason: Protocol Stop: 12/24/17 21:03 Last Admin: 12/24/17 21:14 Dose: 1,000 mls General Time Seen by Provider: 12/24/17 20:50 Initial Vital Signs: Initial Vital Signs Temperature (C) 37.0 C 12/24/17 20:19 Heart Rate 114 H 12/24/17 20:19 Respiratory Rate 20 12/24/17 20:19 Blood Pressure 154/95 H 12/24/17 20:19 O2 Sat (%) 96 12/24/17 20:19 O2 Delivery Mode Room Air Allergies/Adverse Reactions: Penicillins Allergy (Verified 12/24/17 20:19) Home Medications: Medication Instructions Recorded Dilantin 09/23/17 Cbd Oil 09/24/17 DIAZEPAM 12/24/17 Phenytoin 12/24/17 Departure - Departure Disposition: Home, Routine, Self-Care Clinical Impression: Seizure disorder Condition: Good Instructions: Epilepsy (ED) Additional Instructions: Follow up with your primary care provider in 2-3 days. Return to the emergency department for fever, seizure lasting longer than five minutes, difficulty breathing, or other worsening of condition. Referrals: Nasir Resendez MD [Primary Care Provider] - As per Instructions Report Scribed for: Valdez Kuhn Report Scribed by: Zofia Tyson Date of Report: 12/24/17 Time of Report: 21:03 Physician Review and Approval Statement: Portions of this note were transcribed by an ED scribe. I personally performed the history, physical exam, and medical decision making; and confirm the accuracy of the information in the transcribed note.
[2017-12-24] MEDS ORDERED: NS 1,000 ML IV ONE (21:02)
[2017-12-24 21:31] LABS: PLATELET COUNT 285 10^3/uL (150-400)
[2017-12-24 22:15] VITALS: BP 132/81
== END 2017-12-24 23:04 | disposition home or self-care (01) ==
DX: G40.909 Epilepsy, unspecified, not intractable, without status epilepticus (principal); E86.9 Volume depletion, unspecified

== ENCOUNTER 2018-01-24 17:35 | Observation (INO) | payer OTHER, MEDICAID ==
--- NOTE | 2018-01-24 17:47 | EDPHY ---
H & P - Personal History Tetanus Vaccine Date: < 10 years - Medical/Surgical History Hx Asthma: No Hx Chronic Respiratory Disease: No Hx Diabetes: No Hx Cardiac Disease: No Hx Renal Disease: No Hx Cirrhosis: No Hx Alcoholism: No Hx HIV/AIDS: No Hx Splenectomy or Spleen Trauma: No Other PMH: pmh: Epilepsy. psh: denies - Social History Smoking Status: Former smoker <Gerald Jeffries - Last Filed: 01/24/18 19:14> <Freddie Benitez - Last Filed: 01/25/18 06:19> Time Seen by Provider: 01/24/18 17:35 HPI/ROS: CHIEF COMPLAINT: Seizure-like activity HISTORY OF PRESENT ILLNESS: 37-year-old male arrives via ambulance after 2 witnessed seizures while at home, witnessed by roomate. He has a history of seizure activity, history of medication noncompliance. States that he has been intermittently compliant with his Dilantin. His only complaint is laceration/ abrasion to his tongue. He denies: Alcohol or drug use, benzodiazepine use, headache, midline C-spine pain, peripheral paresthesia, weakness, numbness, abdominal pain or trauma, chest pain or trauma, alcohol use, dyspnea, chest pain. PRIMARY CARE PROVIDER:Dr. Nasir Resendez REVIEW OF SYSTEMS: A ten point review of systems was performed and is negative with the exception of the items mentioned in the HPI PAST MEDICAL/SURGICAL HISTORY: Seizure disorder. SOCIAL HISTORY: Denies recent alcohol or benzodiazepine use PHYSICAL EXAM 1) GENERAL: Well-developed, well-nourished, slow to answer questions, believes it is 2014, does not know in was city or state he is in.. Appears to be in no acute distress. Answering questions appropriately. 2) HEAD: Normocephalic, atraumatic 3) HEENT: Pupils equal, round, reactive to light bilaterally. Negative Horners. Nasopharynx, oropharynx, clear. No deformity or angulation of nose. No septal hematoma. No rhinorrhea. No oral trauma. Ears bilaterally with normal tympanic membranes. Left lateral tongue abrasion. No hemotympanum. No fluid or blood in the external auditory canal. No raccoon eyes. No Child sign. Teeth are normally aligned with no gross malocclusion, TMJ bilaterally nontender , facial bones nontender including the zygomatic arch, maxilla mandible. 4) NECK: No cervical collar is on. Posterior cervical spine is nontender, no stepoff, no effusion. Full range of motion which does not elicit any midline cervical spine pain, no posterior midline tenderness, no step-off. 5) LUNGS: Clear to auscultation bilaterally, no wheezes, no rhonchi, no retractions. No obvious signs of trauma. No chest wall pain. No flaring, no grunting. Moving symmetrically. No crepitus. 6) HEART: Regular rate and rhythm, 7) ABDOMEN: No guarding, no rebound, no focal tenderness, no peritoneal signs, no signs of trauma, no ecchymosis 8) MUSCULOSKELETAL: Moving all extremities, no focal areas of tenderness, no obvious trauma. 9) BACK: No midline vertebral tenderness, no fluctuance, no step-off, no obvious trauma, no visual or palpable abnormality. 10) SKIN: No laceration. No abrasion 11) NEURO: Awake, alert, and oriented to person only. He is slow to answer questions. There were no obvious focal neurologic abnormalities. Upper and lower extremities bilaterally with strength 5 / 5, reflexes 2+. DIFFERENTIAL DIAGNOSIS: Not necessarily in any particular order, my differential diagnosis includes, but is not limited to, concussion, skull fracture, intraparenchymal contusion, subarachnoid, subdural and epidural hematoma. The patient understands that this diagnosis is provisional and can never be 100% accurate. (Gerald Jeffries) Constitutional: Initial Vital Signs Temperature (C) 36.9 C 01/24/18 17:39 Heart Rate 78 01/24/18 17:39 Respiratory Rate 16 01/24/18 17:39 Blood Pressure 111/71 01/24/18 17:39 O2 Sat (%) 97 01/24/18 17:39 O2 Delivery Mode Room Air Allergies/Adverse Reactions: Penicillins Allergy (Verified 12/24/17 20:19) Home Medications: Medication Instructions Recorded Phenytoin Sodium Extended 100 mg PO HS 01/24/18 [Dilantin (*)] Medical Decision Making <Gerald Jeffries - Last Filed: 01/24/18 19:14> Consult/Admit Bed Type: [place] 1899, [facility] 1909 <Freddie Benitez S - Last Filed: 01/25/18 06:19> ED Course/Re-evaluation: 5:43 p.m. patient greeted on arrival by myself and Dr Benitez. Old medical records reviewed. He is postictal completed his 2015 , does not knows where he is. Will obtain laboratory studies, CT imaging. In his possession is a bottle of Dilantin filled 2 days ago. In reviewing medical records he has a noted benzodiazepine history. He denies taking benzodiazepines in some time. 5:53 P.M.: Called emergently to bedside as patient was actively seizing. He was given 2 mg of intramuscular Ativan as he pulled his IV. 7:14 p.m.: Called to the bedside as patient was actively seizing. Given 2 mg of IV Ativan. (Gerald Jeffries) Critical Care Time: Critical care time spent by me, Dr. Benitez, exclusively with the care of this patient was 30 minutes, exclusive of PA or WHEEL BRAIDER time and exclusive of separate procedures. The organ system at risk was neurologic and I ordered intravenous Ativan, Dilantin, serial exams, diagnostics to stabilize the patient and prevent worsening of the patient's condition. (Freddie Benitez) Other Provider: PHYSICIAN DOCUMENTATION: The patient was evaluated and managed by the Physician Roof Truss Detailer and myself. I have reviewed the chart. In addition, I examined the patient myself at on arrival. History confirmed as 2 seizures at home, has a history of seizures on oral Dilantin. Physical findings as follows: Patient is alert although confused moving all 4 extremities. 1754: 1 min generalized tonic-clonic seizure, 2 mg IV Ativan. 1800: Seizure activity resolved. He pulled out his IV, a 2nd 1 was started. 1843: Sleeping quietly, does not require supplemental oxygen, difficult to arouse, very sleepy after the Ativan. 500 mg IV Dilantin additional for level of 10, admission to ICU for status epilepticus. 1910: Per Dr. To he agrees with benzodiazepine and loading to a higher phenytoin level. Recurrent seizure, additional 2 mg IV Ativan, Dilantin infusing. I am the secondary supervising physician. (Freddie Benitez) - Data Points Laboratory Results: Laboratory Results 01/24/18 17:40 01/24/18 17:40 01/24/18 17:40 Sodium 135 mEq/L mEq/L (135-145) Potassium 4.2 mEq/L mEq/L (3.3-5.0) Chloride 107 mEq/L mEq/L (97-110) Carbon Dioxide 14 mEq/l L mEq/l (22-31) Anion Gap 14 mEq/L mEq/L (8-16) BUN 11 mg/dL mg/dL (7-23) Creatinine 0.9 mg/dL mg/dL (0.7-1.3) Estimated GFR > 60 Glucose 93 mg/dL mg/dL (70-100) Calcium 9.3 mg/dL mg/dL (8.5-10.4) Phenytoin 10.8 mcg/mL mcg/mL (10.0-20.0) Ethyl Alcohol < 10 mg/dL mg/dL (0-10) Medications Given: Discontinued Medications Phenytoin Sodium 500 mg/ (Sodium Chloride) 110 mls @ 144 mls/hr IV ONCE ONE Stop: 01/24/18 19:28 Last Admin: 01/24/18 19:01 Dose: 110 mls Sodium Chloride (Ns) 1,000 mls @ 125 mls/hr IV CONT DAVID Stop: 01/25/18 04:44 Last Admin: 01/24/18 21:17 Dose: 1,000 mls Lorazepam (Ativan Injection) 2 mg IVP EDNOW ONE Stop: 01/24/18 17:55 Last Admin: 01/24/18 18:07 Dose: 2 mg Lorazepam (Ativan Injection) 2 mg IVP EDNOW ONE Stop: 01/24/18 18:06 Last Admin: 01/24/18 18:07 Dose: 2 mg Lorazepam (Ativan Injection) 2 mg IVP EDNOW ONE Stop: 01/24/18 19:15 Last Admin: 01/24/18 19:16 Dose: 2 mg Lorazepam (Ativan Injection) 2 mg IVP EDNOW ONE Stop: 01/24/18 20:07 Last Admin: 01/24/18 20:12 Dose: 2 mg Departure <Gerald Jeffries - Last Filed: 01/24/18 19:14> <Freddie Benitez - Last Filed: 01/25/18 06:19> - Departure Disposition: [facility] Acute Clinical Impression: Seizure disorder, Status epilepticus Condition: Serious
[2018-01-24 17:53] LABS: PLATELET COUNT 258 10^3/uL (150-400)
[2018-01-24] MEDS ORDERED: LORazepam 2 MG/ML INJ ONE ×2 (17:54→18:05)
[2018-01-24] MEDS ORDERED: LORazepam 2 MG/ML INJ IVP ONE ×4 (17:54→20:06)
[2018-01-24] MEDS ORDERED: PHENYTOIN SODIUM IV ONE (18:43)
[2018-01-24] MEDS ORDERED: NS IV ONE (18:43)
[2018-01-24] MEDS ORDERED: ONDANSETRON 4 MG/2 ML VIAL IVP PRN (19:06)
[2018-01-24] MEDS ORDERED: ACETAMINOPHEN 325 MG TAB PO PRN (19:06)
[2018-01-24] MEDS ORDERED: ONDANSETRON DISINTEGRATING 4 MG TAB PO PRN (19:06)
[2018-01-24] MEDS ORDERED: LORazepam 2 MG/ML INJ IVP PRN (20:26)
[2018-01-24] MEDS ORDERED: NS 1,000 ML IV SCH (20:45)
--- NOTE | 2018-01-24 21:24 | GHP ---
[f rep st] HISTORY AND PHYSICAL DATE OF ADMISSION: 01/24/2018 CHIEF COMPLAINT: Seizures. HISTORY OF PRESENT ILLNESS: Obtained from ED notes as patient is not able to participate in my exam secondary to Ativan. A 37-year-old male arrived via ambulance after 2 witnessed seizures at home from a roommate. He has a history of seizure disorder with medication noncompliance. He says he has been intermittently taki ng his Dilantin. He had a laceration abrasion on his tongue. He denies any alcohol use. No recent infectious symptoms. No chest pain, shortness of breath, dizziness, or lightheadedness. He had anot her seizure in the emergency room, was given Ativan, and loaded with Dilantin per Neurology recommend ations. A CT head is pending. REVIEW OF SYSTEMS: I completed a 10-point review of systems per chart review. PAST MEDICAL HISTORY: Seizures. PAST SURGICAL HISTORY: None. FAMILY HISTORY: Negative for seizures. SOCIAL HISTORY: Drinks socially. He is on disability due to seizures. Unclear if he smokes tobacco or does drugs. HOME MEDICATIONS: Dilantin 100 mg at bedtime. ALLERGIES: Penicillin. PHYSICAL EXAM: VITAL SIGNS: Temperature is afebrile. Blood pressure is 97/54, heart rate is 85, re spirations 18, 95% on room air. GENERAL: He is very somnolent, opens eyes minimally to sternal rub. HEENT: Dry mucous membranes. CV: Regular rate and rhythm. LUNGS: Clear anteriorly. ABDOMEN: No grimace with palpation. MUSCULOSKELETAL: Not able to participate. NEURO: Not able to participa te due to sedation with Ativan. LABS: WBC 15, hemoglobin 13, hematocrit 40, platelets 258. Sodium 135, potassium 4.2, chloride 107, carbon dioxide 14, creatinine 0.9. Dilantin level is 10. CT head is pending. ASSESSMENT/PLAN: 1. Seizures: He has had 3 seizures today. He was loaded with Dilantin. His level was 10, which wa s at the low end of normal, likely due to noncompliance. He was loaded with Dilantin here. CT head is pending. Will consult Neurology in the morning. Resume his home on the Dilantin dose. 2. Leukocytosis, stress reaction with seizures. 3. Mild non-anion gap acidosis secondary to seizure. We will hydrate. 4. Diet regular when eating. DVT prophylaxis low risk. DISPOSITION: Patient warrants observation admission in step-down for frequent neuro checks, CT head, and neurology consult. /[id number]/MODL
[2018-01-25 09:21] LABS: PLATELET COUNT 272 10^3/uL (150-400)
--- NOTE | 2018-01-25 10:17 | ASMTCMCOM ---
CM Note CM Note Notes: Pt in for seizures, chart indicates non-compliance with Dilantin. CT pending. Neurology to consult. No therapies ordered. CM to follow. Date Signed: 01/25/2018 10:16 AM Electronically Signed By:CYN Casas
--- NOTE | 2018-01-25 11:31 | NEUROPROG ---
Assessment: HOSPITAL NEUROLOGY CONSULT REQUESTING: Alley Purcell MD REASON: seizures HPI: 37 year old man with a known history of drug-resistant localization related epilepsy. He's been followed by multiple neurologists over the years and tried on a number of anti-seizure medications without great control. He still experiences frequent breakthrough seizures at least monthly, if not more frequently. His seizures are usually out of sleep, though he can have a generalized convulsion during waking hours on occasion (suspected rapid secondary generalization). He is currently maintained on phenytoin ER 600mg nightly. He is now followed by [facility] epilepsy section of neurology and exploring MAD diet as an adjunct. He also uses CBD oil. He has a history of prior alcohol abuse, medication noncompliance and is also using benzodiazepines for MSK reasons. Yesterday he was witnessed to have two convulsions while at home and EMS was summoned. He was combative in between seizures. He had another seizure in the ED. He was given lorazepam and loaded with phenytoin in the ED. Phenytoin level in ED was found to be 10.8. Patient returned to baseline overnight without subsequent seizure activity. Today he tells me he is amnestic of yesterday's events. He denies missing medication doses. He denies recent illnesses. He denies any toxic exposures. ROS: As per the HPI, otherwise a complete 12 point ROS was performed and is negative ALLERGIES AND MEDS: As recorded in the EMR - reviewed and reconciled PFSH: As per the intake H&P by Dr. Purcell from yesterday. Outside records reviewed in our outpatient system as well. EXAM: VS reviewed in EMR GEN: WDWN laying in NAD HEENT: NCAT, sclera anicteric, conjunctiva not injected, MMM, oropharynx clear, no scalp tenderness, no tongue laceration. NECK: supple, nontender, no meningismus CV: RRR s1 s2 wo m/r/c/g. Carotid pulses 2+ wo bruit NEURO: MS: awake, alert, oriented to all spheres. Speech nondysarthric. No language disturbance. Follows commands. Attends to both sides. Recent/remote memory grossly intact. Mood euthymic. Good fund of knowledge. CN: pupils 3mm round and reactive. Fundi with sharp discs. VFF. Primary gaze centered. Full ocular motility. Facial sensation preserved. Face symmetric. Hearing grossly intact to finger rub. Palatoglossal movements intact. Shoulder shrug and head turn strong. MOTOR: normal bulk/tone. No adventitial movements. Full power throughout. SENSORY: intact to all modalities throughout. No extinction. COORD: no ataxia FN/HS. Matthew preserved. REFLEX: plantars down. No clonus. DTRS 2/4. GAIT: deferred to PT safety eval. DATA REVIEW: Labs reviewed in EMR PERSONALLY INTERPRETED RESULTS AND DATA: CT head wo - stable right pretemporal arachnoid cyst with subtle adjacent area of temporal encephalomalacia. Nothing acute. IMPRESSION AND RECOMMENDATIONS: // HX DRUG-RESISTANT LOCALIZATION RELATED EPILEPSY // BREAKTHROUGH SEIZURE Patient with known drug resistant epilepsy with breakthrough seizures. Phenytoin level is low-normal, which is somewhat out of proportion to the amount of medication he is supposed to be taking. He denies any medication noncompliance. In any event, this pattern is not unusual for him with his challenging drug-resistant epilepsy case. Would recommend he continue his recommended phenytoin ER dose of 600mg nightly. He was counseled to avoid any toxic/illicit substances. He was counseled on medication compliance. Recommend avoidance of benzos in the event he is having withdrawal episodes. Counseled on indefinite driving restrictions. Counseled on safety measures such as not climbing heights, not swimming/tub bathing alone, not operating heavy machinery and not performing any other activity that could put himself or others in harm's way due to a seizure. He needs very close and frequent follow up with the epileptology team at [facility]. Recommend follow up within 1 week. Will sign off. Objective: Vital Signs Temp Pulse Resp BP Pulse Ox 36.8 C 98 15 138/75 H 96 01/25/18 08:00 01/25/18 08:00 01/25/18 08:00 01/25/18 08:00 01/25/18 08:00 Laboratory Results 01/25/18 09:10 01/25/18 09:10 01/24/18 01/25/18 01/26/18 05:59 05:59 05:59 Intake Total 1013 370 Output Total 400 Balance 613 370 Allergies/Adverse Reactions: Penicillins Allergy (Verified 12/24/17 20:19)
[2018-01-25 13:09] VITALS: BP 122/68
--- NOTE | 2018-01-25 13:41 | ASMTCMCOM ---
CM Note CM Note Notes: Pt medically stable for d/c, no CM d/c needs identified. Date Signed: 01/25/2018 01:40 PM Electronically Signed By:CYN Casas
--- NOTE | 2018-01-25 14:14 | PDDCSUM ---
Discharge Summary Discharge Summary: 37 YO male with epilepsy p/w breakthrough seizure. Patient with known drug resistant epilepsy with breakthrough seizures. Phenytoin level is low-normal, which is somewhat out of proportion to the amount of medication he is supposed to be taking. He denies any medication noncompliance. In any event, this pattern is not unusual for him with his challenging drug-resistant epilepsy case. Neurology recommends he continue his recommended phenytoin ER dose of 600mg nightly. He was counseled to avoid any toxic/illicit substances. He was counseled on medication compliance. Recommend avoidance of benzos in the event he is having withdrawal episodes. He has close and frequent follow up with the epileptology team at [facility]. He will follow up within [address] head wo - stable right pretemporal arachnoid cyst with subtle adjacent area of temporal encephalomalacia. Nothing acute. D/C Diagnosis # HX DRUG-RESISTANT LOCALIZATION RELATED EPILEPSY #BREAKTHROUGH SEIZURE Exam: NAD AAOX3 RRR CTA B S/NT/ND NO LE EDEMA MEDS: NO NEW MEDS WERE STARTED F/U: PER ABOVE TOTAL TIME SPENT ON D/C IS 35 MINS
[2018-01-25] MEDS ORDERED: PHENYTOIN SODIUM EXTENDED 100 MG CAP PO SCH (21:00)
== END 2018-01-25 12:31 | disposition home or self-care (01) ==
LOC: EDBD → EDUNIT# → F2N 21:00
PROVIDERS: ADMIT Internal Medicine; ATTEND Internal Medicine
DX: G40.909 Epilepsy, unspecified, not intractable, without status epilepticus (principal); Z91.19 Patient's noncompliance with other medical treatment and regimen
CPT/HCPCS: 70450; 96374; 96375; 99291; G0378; J1165; J2060; 80305; G0480

== ENCOUNTER 2018-10-18 10:04 | Inpatient (IN) | payer OTHER, MEDICAID ==
[2018-10-18] MEDS ORDERED: LORazepam 2 MG/ML INJ ONE (10:30)
[2018-10-18] MEDS ORDERED: LORazepam 2 MG/ML INJ IVP ONE ×2 (10:31→10:48)
[2018-10-18] MEDS ORDERED: KETAMINE 500 MG/10 ML VIAL IM ONE (10:38)
[2018-10-18] MEDS ORDERED: KETAMINE 200 MG/20 ML VIAL ONE (10:39)
[2018-10-18 11:00] LABS: PLATELET COUNT 281 10^3/uL (150-400)
[2018-10-18] MEDS ORDERED: NS 1,000 ML IV ONE (11:06)
--- NOTE | 2018-10-18 11:06 | EDPHY ---
General - History Smoking Status: Current every day smoker Time Seen by Provider: 10/18/18 10:33 Narrative: CLINICAL IMPRESSION: Seizure, metabolic acidosis ASSESSMENT/PLAN: 38-year-old male with a known seizure disorder, reportedly followed by [facility], presents to the emergency department by EMS after having 3 seizures today. Patient began seizing shortly after arrival, has a history of becoming significantly combative in his postictal state and required 4 point restraints, IM Ativan, IM ketamine, and finally IV Haldol in order to calm down. Patient's mother arrived shortly after his arrival and states this behavior is very normal for him following seizures. He has reportedly "failed all other seizure medications" and is apparently going to try some kind of electro therapy for his seizures followed by the [facility]. He has had some increased stress over the last couple days. She believes he has been taking his medication compliantly however is found to have a subtherapeutic phenytoin level of 8.6. An IV loading dose was given in the ED. He was also found to have metabolic acidosis likely secondary to seizures. Small non-suturable tongue laceration noted. Patient will be admitted to the hospitalist service for close monitoring. He was placed in the step-down unit by recommendation of Priscilla, nurse practitioner, admitted to Dr. Purcell service. Seen and examined by Dr. Serrano as well DIFFERENTIAL DX: Differential diagnosis including but not limited to hypoglycemia, infectious process, seizures, electrolyte abnormality, head injury and intoxicants ED PROCEDURES: See lab and/or imaging results below ED COURSE: On initial presentation, patient is actively having a seizure but also very combative, spitting, requiring 4 point restraints. According to EMS, this is how patient behaves after seizure activity. Review of recent ED chart notes and admission records indicate the same. Patient last admitted in May of 2018. Known seizure disorder, on Dilantin, intermittent periods of noncompliance followed by [facility]. Patient required IM Ativan and ketamine in order to calm down. 11:00 a.m.. Restraints discontinued at this time 11:15 a.m.: Patient apparently awaking and becoming combative again, trying to pull out his IV lines. Given 5 mg IV Haldol. Patient's mother called and spoke with the ED RN. Patient is apparently seen at [facility] for seizures, reportedly taking his medication compliantly however was found to have subtherapeutic phenytoin level. IV loading dose initiated in the ED. Noted to have metabolic acidosis likely secondary to seizure. Unable to assess her tongue laceration. History of postictal combative behavior. Will plan to admit 12:00 p.m.: Discussed with Priscilla from hospitalist service. Patient will placed on step-down unit to Dr. Purcell service CHIEF COMPLAINT: Seizures HPI: 38-year-old male with a known history of seizure disorder followed by [facility] presents to the emergency department by EMS after reportedly having 1 seizure last night and 3 today. Apparently patient becomes very combative and aggressive after seizures. Shortly after arrival into the ED, he experienced another seizure and became very combative, spitting , and thrashing on the bed. He required 4 point restraints, IM Ativan and IM ketamine. Assessed by myself and Dr. Serrano. Patient is unable to provide a history at this time. PAST MEDICAL HISTORY: Seizures See nurse/triage notes for additional history if applicable Pertinent Past Surgical History: See nurse triage note Family History: See nurse triage note Social History: None reported REVIEW OF SYSTEMS: Unable to obtain as patient is having an active seizure. PHYSICAL EXAM: General Appearance: Actively seizing, combative, thrashing on the bed, spitting at staff members, yelling and screaming, diaphoretic, tachycardic and diaphoretic HEENT: [TMs are clear bilaterally no perforation or FB, no injection, unable to examine oropharynx and tongue as patient is seizing and clenching his jaw and spitting. However there is blood on the corner of his mouth and suspicion for possible tongue laceration. I was later able to visualize patient's tongue which shows a small superficial laceration not requiring sutures. Eyes: PERRLA, no acute vision change, nystagmus, swelling, discharge, pain or photosensitivity. Conjunctiva pink, no pallor or injection Neck: Supple, nontender, no lymphadenopathy, no midline pain, FROM, no meningismus. Respiratory: There are no retractions, lungs are clear to auscultation. Cardiac: Regular rate and rhythm, no murmurs or gallops. Gastrointestinal: Abdomen is soft, nontender, bowel sounds normal, no masses/ hernia, no rigidity, guarding or focal peritoneal findings. Neurological: Actively seizing and screaming Skin: Diaphoretic Musculoskeletal: Extremities are symmetrical, full range of motion, no tenderness, deformity, swelling, or erythema. Psychiatric: Agitated MEDICAL DECISION MAKING: Patient was seen independently. Secondary supervising physician at time of evaluation was Dr. Serrano . Diagnosis: Seizures, metabolic acidosis. New, requires workup Summary: See Assessment and Plan for summary of ED visit Clinical lab tests: ordered / reviewed. Decision to obtain medical records or history from someone other than the patient: Patient's mother Review / Summarize previous medical records: Reviewed last admission notes Discussed patient with another provider: Priscilla Egan from hospitalist service Patient Progress: Stable for admission. (Logan Alcocer) Medical Decision Making: Independent physician evaluation: I evaluated and participated in the management of the patient. I also evaluated the patient independently. My co-signature indicates that I have reviewed this chart and I agree with the findings and plan of care as documented. My personal H&P findings include: The patient presents the emergency department after a seizure. He arrives to the emergency department and was noted to have another seizure. He is unable to provide additional history as he is postictal and combative. Physical exam: General Appearance: Postictal, combative Eyes: Pupils equal and round no pallor or injection ENT, Mouth: Mucous membranes moist, tongue abrasion Respiratory: There are no retractions, lungs are clear to auscultation Cardiovascular: Regular rate and rhythm Gastrointestinal: Abdomen is soft and nontender, no masses, bowel sounds normal Neurological: Grossly normal motor movements all 4 extremities Skin: Warm and dry, no rashes Musculoskeletal: Neck is supple nontender Extremities: symmetrical, full range of motion ED course: Patient was observed to have another seizure in the emergency department. He pulled out his IV. He received a total of 2 mg of intramuscular Ativan. The patient continued to have a very aggressive postictal state requiring 4 people to restrain him. Secondary to his ongoing agitation and out of concerns for his personal safety he did received 300 mg of IM ketamine for abatement of his symptoms. The patient was noted to have a subtherapeutic Dilantin level. The patient has been loaded in the ED. In reviewing the patient's past medical history he does have a history of cluster type seizures with a fairly significant severe postictal state. It would be prudent to admit him to the hospital for observation this evening. Consultation was made with the hospitalist service who will admit the patient. (Andrea Serrano) - Objective Vital Signs: Initial Vital Signs Heart Rate 103 H 10/18/18 10:08 Respiratory Rate 18 10/18/18 10:08 Blood Pressure 120/75 10/18/18 10:08 O2 Sat (%) 91 L 10/18/18 10:08 O2 Delivery Mode Non-Rebreather Mask O2 (L/minute) 3 Allergies/Adverse Reactions: Penicillins Allergy (Verified 03/08/18 05:37) Home Medications: Medication Instructions Recorded Phenytoin Sodium Extended 600 mg PO HS 01/24/18 [Dilantin (*)] Diazepam [Valium 10 MG (*)] 10 mg PO TID 06/21/18 Midazolam 5 mg/ml Carpuject 10 mg NASAL ONCE PRN 06/21/18 Phenytoin 10/18/18 Laboratory Results: Laboratory Results 10/18/18 10:45 10/18/18 10:45 10/18/18 10/18/18 10:45 10:45 WBC 24.46 10^3/uL H 10^3/uL (3.80-9.50) RBC 5.41 10^6/uL 10^6/uL (4.40-6.38) Hgb 15.0 g/dL g/dL (13.7-17.5) Hct 46.4 % % (40.0-51.0) MCV 85.8 fL fL (81.5-99.8) MCH 27.7 pg L pg (27.9-34.1) MCHC 32.3 g/dL L g/dL (32.4-36.7) RDW 15.5 % H % (11.5-15.2) Plt Count 281 10^3/uL 10^3/uL (150-400) MPV 9.6 fL fL (8.7-11.7) Neut % (Auto) Not Reported Lymph % (Auto) Not Reported [place] % (Auto) Not Reported Eos % (Auto) Not Reported Baso % (Auto) Not Reported Nucleat RBC Rel Count Not Reported Absolute Neuts (auto) Not Reported Absolute Lymphs (auto) Not Reported Absolute Monos (auto) Not Reported Absolute Eos (auto) Not Reported Absolute Basos (auto) Not Reported Absolute Nucleated RBC Not Reported Immature Gran % Not Reported Seg Neutrophils % 80.0 % % Band Neutrophils % 0.0 % % Lymphocytes % 10.0 % % Monocytes % 9.0 % % Eosinophils % 0.0 % % Basophils % 1.0 % % Metamyelocytes % 0.0 % % Myelocytes % 0.0 % % Promyelocytes % 0.0 % % Blast Cells % 0.0 % % Immature Gran # Not Reported Absolute Seg Neuts 19.57 10^3/uL H 10^3/uL (1.70-6.50) Absolute Band Neuts 0.00 10^3/uL 10^3/uL (0.00-0.70) Absolute Lymphocytes 2.45 10^3/uL 10^3/uL (1.00-3.00) Absolute Monocytes 2.20 10^3/uL H 10^3/uL (0.30-0.80) Absolute Eosinophils 0.00 10^3/uL L 10^3/uL (0.03-0.40) Absolute Basophils 0.24 10^3/uL H 10^3/uL (0.02-0.10) Absolute Metamyelocyte 0.00 10^3/mL 10^3/mL (0.00-0.00) Absolute Myelocytes 0.00 10^3/mL 10^3/mL (0.00-0.00) Absolute Promyelocytes 0.00 10^3/uL 10^3/uL (0.00-0.00) Absolute Plasma Cells 0.00 10^3/uL 10^3/uL (0.00-0.00) Nucleated RBCs 0 /100 WBC /100 WBC (0-0) Absolute Blast Cells 0.00 10^3/uL 10^3/uL (0.00-0.00) Plasma Cells % 0.0 % % Platelet Estimate ADEQUATE (ADEQ) Oval Macrocytes 1+ H Sodium 146 mEq/L H mEq/L (135-145) Potassium 3.9 mEq/L mEq/L (3.5-5.2) Chloride 111 mEq/L H mEq/L (97-110) Carbon Dioxide 10 mEq/l L mEq/l (22-31) Anion Gap 25 mEq/L H mEq/L (6-14) BUN 13 mg/dL mg/dL (7-23) Creatinine 1.0 mg/dL mg/dL (0.7-1.3) Estimated GFR > 60 Glucose 139 mg/dL H mg/dL (70-100) Calcium 9.6 mg/dL mg/dL (8.5-10.4) Phenytoin 8.6 mcg/mL L mcg/mL (10.0-20.0) Ethyl Alcohol < 10 mg/dL mg/dL (0-10) Medications Given: Discontinued Medications Haloperidol Lactate (Haldol Injection) 5 mg IVP EDNOW ONE Stop: 10/18/18 11:30 Last Admin: 10/18/18 11:32 Dose: 5 mg Sodium Chloride (Ns) 1,000 mls @ 0 mls/hr IV EDNOW ONE; Wide Open PRN Reason: Protocol Stop: 10/18/18 11:07 Last Admin: 10/18/18 11:10 Dose: 1,000 mls Ketamine HCl (Ketamine) 300 mg IM EDNOW ONE Stop: 10/18/18 10:39 Last Admin: 10/18/18 10:40 Dose: 300 mg Lorazepam (Ativan Injection) 1 mg IVP EDNOW ONE Stop: 10/18/18 10:32 Last Admin: 10/18/18 10:30 Dose: 1 mg Lorazepam (Ativan Injection) 1 mg IVP EDNOW ONE Stop: 10/18/18 10:49 Last Admin: 10/18/18 10:35 Dose: 1 mg Departure - Departure Disposition: [facility] Clinical Impression: Seizure disorder, Metabolic acidosis Condition: Fair
[2018-10-18] MEDS ORDERED: HALOPERIDOL LACT 5 MG/ML INJ IVP ONE (11:29)
[2018-10-18] MEDS ORDERED: ACETAMINOPHEN 325 MG TAB PO PRN (12:12)
[2018-10-18] MEDS ORDERED: ONDANSETRON 4 MG/2 ML VIAL IVP PRN (12:12)
[2018-10-18] MEDS ORDERED: ONDANSETRON DISINTEGRATING 4 MG TAB PO PRN (12:12)
[2018-10-18] MEDS ORDERED: LORazepam 2 MG/ML INJ IVP PRN (15:42)
[2018-10-18] MEDS ORDERED: NS 1,000 ML IV SCH (16:15)
[2018-10-18 16:22] VITALS: BP 124/66
--- NOTE | 2018-10-18 16:25 | GHP ---
[f rep st] HISTORY AND PHYSICAL DATE OF ADMISSION: 10/18/2018 HISTORY OF PRESENT ILLNESS: A 38-year-old male presents with a seizure. He has a history of seizure disorder with medication noncompliance. He has been hospitalized here at [facility] December and May of 2018. He is on Dilantin, which he says he has been taking regularly. He is followed by Dr. Tucker at [facility]. Has been on Atkins diet with some improvement. He presents to the ER today with 3 seizures, 1 seen here. He became very combative during his postictal state and required 4-point restraint, Ativan, ketamine, and Haldol to calm down. Patient's mother was at bedside. Says that this agitated behavior is very normal after seizures. Reports increased stress over the last couple days. He was loaded with Dilantin in the ER. REVIEW OF SYSTEMS: Negative except in HPI. PAST MEDICAL HISTORY: Seizure disorder. PAST SURGICAL HISTORY: None. FAMILY HISTORY: Negative for seizures. SOCIAL HISTORY: Drinks socially. On disability due to seizures. Denies illicit drugs. HOME MEDICATIONS: Valium 10 mg three times daily, herbal supplement, phenytoin 500 mg at bedtime. ALLERGIES: Penicillin. PHYSICAL EXAMINATION: VITAL SIGNS: Temperature 36.7, blood pressure 120/61, heart rate 106, respiration 18, 92% on room air. GENERAL: Somnolent, but opens eyes to questions, not very conversant, mildly agitated. HEENT: PERRLA. Moist mucous membranes. CV: Tachy, regular. LUNGS: Clear anteriorly. ABDOMEN: Soft, nontender. : No [place]. MUSCULOSKELETAL: Moving all 4 extremities. NEURO: 2 through 12 intact. He is following simple commands. PSYCH: He is answering questions appropriately. Alert and oriented x3. LABS: Sodium 146, potassium 3.9, chloride 111, carbon dioxide 10, creatinine is 1 (baseline 0.8), glucose 139, phenytoin level 8.6. WBC 24, hemoglobin 15, hematocrit 46, platelets 281. HOSPITAL COURSE BY PROBLEM: 1. Acute seizure: reports compliance with meds and has been filling regularly at pharmacy. Phenytoin level is low at 8.6. He was loaded in the ER. We will resume home dose this evening. P.r.n. Ativan if needed. 2. Leukocytosis: Secondary to stress reaction. Will hydrate. Repeat. Denies infectious symptoms. 3. Metabolic acidosis: Secondary to seizure. 4. Mild AL: Creatinine elevated at 1. Will hydrate. DISPOSITION: Observation admission given acute seizure, warranting frequent neuro checks as a step-down admission. Addendum: 16:30 Called bedside, because wants leave. Advised him to stay overnight, but he declined.Acknowledge risks: seizure, coma, . A&O x 3 at this time. RN at bedside /[id number]/MODL MTDD
--- NOTE | 2018-10-18 16:38 | ASMTCMCOM ---
CM Note CM Note Notes: Pt presented to the ED via EMS after having multiple seizures. Pt has a history of seizure disorder and is followed by [facility]. Pt has a history of nonadherence with taking his Dilantin. Pt became combative/uncooperative (which is reportedly typical postictal presentation/behavior for the pt, per chart review and per his mother, Cornelia, who later presented to the ED). Physical restraints and IM medication administration were ultimately needed in order to ensure patient and staff safety. Pt has a history of ETOH abuse but it is unclear if pt is in recovery or not. Exact DC needs TBD. Anticipate pt to stabilize and DC home Ind. w/family support and to followup with [facility]. Date Signed: 10/18/2018 04:37 PM Electronically Signed By:Briseida Juarez RN
[2018-10-18] MEDS ORDERED: PHENYTOIN SODIUM EXTENDED 100 MG CAP PO SCH (21:00)
--- NOTE | 2018-10-19 03:36 | GDS ---
[f rep st] DISCHARGE SUMMARY DISCHARGE DIAGNOSES: 1. Acute seizure. 2. Metabolic acidosis. 3. Leukocytosis. HISTORY OF PRESENT ILLNESS: Please see full H&P dated today for assessment and plan. He signed out AM form and acknowledged risk of seizure, . A&Ox3 at this time. FOLLOWUP: Neurology at [facility]. NEW MEDICATIONS: None. /[id number]/MODL MTDD
--- NOTE | 2018-10-19 08:34 | PDMN ---
Medical Necessity Medical necessity: Pt meets IP criteria as of 10/18/18 per MD and MCG [id number] ( Seizure); est los > 2 mn for ongoing tx and management of multiple seizures resulting in metabolic acidosis and leukocytosis; requiring cardiac monitoring, IV dilantin, restraints d/t aggression in post-ictal state and IV Ativan. Hx seizure disorder.
[2018-10-19] MEDS ORDERED: Herbals/Supplements -Info Only PO SCH (09:00)
== END 2018-10-18 16:40 | disposition left against medical advice (07) | DRG 101 ==
LOC: EDUNIT# → F2N 12:06 → OBSVTOIN 12:14 → F2N 12:44
PROVIDERS: ADMIT Internal Medicine; ATTEND Internal Medicine
DX: G40.909 Epilepsy, unspecified, not intractable, without status epilepticus (principal); E87.2 Acidosis; T42.0X6A Underdosing of hydantoin derivatives, initial encounter; Z78.1 Physical restraint status; F17.210 Nicotine dependence, cigarettes, uncomplicated
CPT/HCPCS: 96374; G0480; J1630; J2060